=== PATIENT | female | born 1970 | race Caucasian/White ===

== ENCOUNTER 2022-01-13 05:15 | Observation (INO) | payer OTHER, SELFPAY ==
[2022-01-13] VITALS (15 sets, daily range): BP systolic 150–220; BP diastolic 87–119; PULSE 57–81; RESP 15–18; TEMP 35.7–36.8; O2SAT 91–99; BMI 36.6
--- NOTE | 2022-01-13 | GALL_PTH ---
PATIENT: ALINA GUILLERMO LOC: MS3 U#:[id number] AGE/SX: 51/F ROOM: IL318 RE01/13/[address]: Dr. Chepe Burgos MD : 1970 BED: 1 DIS: 01/14/2022 SPEC #: [id number] RECD: 01/13/22 15:21 STATUS: VELIA PAGE #: [id number] NICANOR: 01/13/22 00:[address]: Chepe Burgos DEPT: SURGICAL PATHOLOGY RECD BY: Luis Fernando Everett ENTERED: 01/14/22 07:19 SP TYPE: LINDA KRAMER DR: Dr. Greg Morrell MD Tissues: Gallbladder, NOS Procedures: Surgery Specimen Level III HEADER OPERATION: Laparoscopic cholecystectomy with IOC PRE-OP DIAGNOSIS: Cholecystitis with cholelithiasis TISSUE SUBMITTED: Gallbladder MICROSCOPIC DIAGNOSIS Gallbladder, cholecystectomy: Chronic cholecystitis and cholelithiasis. SJ:alycia 01/17/2022 MICROSCOPIC DESCRIPTION Slides are reviewed. GROSS DESCRIPTION Received is one container labeled with the patient's name and designated gallbladder. The specimen consists of a gallbladder measuring 10.5 cm in length and up to 4 cm in diameter. The external surface is pink-esquivel, smooth and glistening for the most part. Focally it is granular, hemorrhagic and contains cautery artifact. The gallbladder contains green-yellow mucoid bile and multiple black irregular stones measuring in aggregate 3 x 3 x 0.5 cm and 0.1 to 0.4 cm in greatest dimension. The mucosa is bile-stained and without any mass lesions. The gallbladder wall measures 0.2 cm in thickness. Service Engineer sections from the gallbladder and the cystic duct are submitted in one cassette. / SJ:rg 01/14/2022 TC:3 [facility]: [id number]
--- NOTE | 2022-01-13 05:27 | EDS_ITS ---
HPI History of Present Illness Chief Complaint: Back Informant: patient Narrative Narrative: 51-year-old female resents to the emergency department with abdominal pain and back pain. States that she ate dinner around 1730 hrs. and started to get a backache at around 2200 hrs. She states that around midnight she started getting upper abdominal pain and nausea. She has not been able to go back to sleep. She notes it is uncomfortable to walk to touch the area. She denies any urinary symptoms. No bowel changes. No fever but does note she was feeling chilled and sweats at times. She has had prior section. [facility] Medical History (Updated 01/13/22 @ 06:[address] Azeem Lindsay DO) Asthma Home Medications montelukast 10 mg tablet 10 mg PO DAILY 01/13/22 [History Last Taken Unknown] Allergy/AdvReac Type Severity Reaction Status Date / Time Penicillins Allergy Shortness Verified 01/13/22 05:20 of breath Surgical History (Updated 01/13/22 @ 05:[address] Azeem Lindsay DO) History of delivery Social History (Updated 01/13/22 @ 05:[address] Azeem Lindsay DO) Smoking Status: Never smoker substance use type: does not use EXAM Physical Exam Const Vital Signs: 01/13/22 05:17 01/13/22 06:04 Temperature 96.2 F L Temperature Source Temporal Pulse Rate 74 67 Respiratory Rate 15 15 Blood Pressure 220/119 H 183/93 H Blood Pressure Mean 152 123 Pulse Ox 98 95 Oxygen Delivery Method Room Air Room Air Positive well nourished and well developed General Appearance ED: well developed HEENT Reports normocephalic, head/scalp atraumatic and moist mucous membranes Eyes PERRL and EOMs intact bilaterally Neck no lymphadenopathy, supple and no JVD Resp normal respiratory effort and clear to auscultation bilaterally Cardio regular rate, regular rhythm and no murmurs GI Auscultation: hypoactive bowel sounds Palpation: soft and tender RUQ; Negative for guarding or rebound tenderness present Back/Spine no CVA tenderness and normal ROM Extremity normal to inspection General Extremety ED: Negative for edema General Extremity: Negative for edema Neuro oriented x3 and CN's II-XII intact bilaterally Sensorium / Orientation: alert Motor Exam: strength 5/5 throughout Psych mental status grossly normal Mood & Affect: Negative for depressed or tearful Skin no rashes or lesions noted and no wounds MDM MDM MDM Narrative Medical decision making narrative: Patient was kept n.p.o. received morphine and Zofran. White count returns elevated at 14.7. Glucose of 131 direct bilirubin of 0.62 AST of 92 and ALT of 67. Lipase of 104. Patient's pain was improved. Nausea is also improved. Gallbladder ultrasound was ordered. It this time the care of the patient will be turned over to the oncoming physician for check of gallbladder report and final disposition. Lab Data Attestation: I reviewed the patient's lab results. Labs: Laboratory Results - last 24 hr 01/13/22 01/13/22 05:30 05:30 WBC 14.7 H RBC 5.11 Hgb 14.4 Hct 42.8 MCV 83.8 MCH 28.2 MCHC 33.6 RDW Std Deviation 39.3 RDW Coeff of Sarina 12.8 Plt Count 346 MPV 9.1 Immature Gran % (Auto) 0.500 Neut % (Auto) 80.3 H Lymph % (Auto) 13.1 L [place] % (Auto) 5.3 Eos % (Auto) 0.3 Baso % (Auto) 0.5 Absolute Neuts (auto) 11.8 H Absolute Lymphs (auto) 1.92 Nucleated RBC % 0 Sodium 138 Potassium 3.4 L Chloride 104 Carbon Dioxide 26.0 Anion Gap 8 BUN 14 Creatinine 0.92 Estim Creat Clear Calc 79.11 Est GFR (MDRD) Af Amer 82 Est GFR (MDRD) Non-Af 68 BUN/Creatinine Ratio 15.2 Glucose 131 H Calcium 8.9 Total Bilirubin 0.90 Direct Bilirubin 0.62 H AST 92 H ALT 67 H Alkaline Phosphatase 47 Total Protein 7.7 Albumin 3.3 Globulin 4.4 H Lipase 104 Discharge Plan Triage Chief Complaint: Back ED Provider: Azeem Lindsay Dx/Rx/DC Orders Clinical Impression: Abdominal pain, Nausea Prescriptions: No Action montelukast 10 mg tablet 10 mg PO DAILY Primary Care Provider: Greg Morrell Referrals: Greg Morrell MD [Primary Care Provider] -
[2022-01-13] MEDS: Ondansetron 4 MG/2 ML Vial IV ×2 (05:33→16:27)
[2022-01-13 05:36] LABS: Absolute Lymphocyte Count 1.92 X10^3/uL (0.83-4.51); Absolute Neutrophil Count 11.8 X10^3/uL (2.0-7.7); Basophil# 0.08 X10^3/uL; Basophil% 0.5 % (0-1); Eosinophil# 0.04 X10^3/uL; Eosinophils% 0.3 % (0-5); Hematocrit 42.8 % (37-47); Hemoglobin 14.4 g/dL (12.0-15.0); Lymphocyte # 1.92 X10^3/ul (0.83-4.51); Lymphocyte % 13.1 % (19-41); Mean Corp Hgb Conc 33.6 g/dL (32-36); Mean Corpuscular Hgb 28.2 pg (27.0-32.0); Mean Corpuscular Volume 83.8 fL (81-99); Mean Platelet Vol. 9.1 fl (6.2-12.0); Monocyte# 0.78 X10^3/uL; Monocyte% 5.3 % (0-10); NRBC Flagged by Analyzer 0 % (0-5); Neutrophil % 80.3 % (47-70); Platelet Count 346 K/mm3 (150-450); RBC Distribution Width CV 12.8 % (11.6-14.6); RBC Distribution Width SD 39.3 fl (35.1-43.9); Red Blood Count 5.11 M/mm3 (4.2-5.4); White Blood Count 14.7 K/mm3 (4.4-11.0)
[2022-01-13] MEDS: Morphine 4 MG/ML Syringe IV (05:36)
[2022-01-13 05:56] LABS: AST(SGOT) 92 U/L (15-37); Alanine Aminotransfer ALT/SGPT 67 U/L (13-56); Albumin, Serum 3.3 g/dL (3.2-5.0); Alkaline Phosphatase 47 U/L (45-117); Anion Gap 8 (5-15); BUN 14 mg/dL (7-18); BUN/Creat Ratio 15.2 RATIO (10-20); Bilirubin, Direct 0.62 mg/dL (0.00-0.30); Calcium,Total 8.9 mg/dL (8.5-10.1); Chloride 104 mmol/L (98-107); Creatinine, Serum 0.92 mg/dL (0.55-1.02); EST Glomerular Filtration Rate 68 mL/min (>60); Est Glom Filt Rate - Afr Amer 82 mL/min (>60); Estimated Creatinine Clearance 79.11 ml/min; Globulin 4.4 g/dL (2.2-4.2); Glucose 131 mg/dL (74-106); Lipase 104 U/L (73-393); Potassium 3.4 mmol/L (3.5-5.1); Protein, Total 7.7 g/dL (6.4-8.2); Sodium Level 138 mmol/L (136-145)
--- NOTE | 2022-01-13 05:58 | US_ITS ---
EXAM: US ABDOMEN LIMITED, RIGHT UPPER QUADRANT CLINICAL INDICATION: Pain TECHNIQUE: Real-time ultrasound of the right upper quadrant with image documentation. This report was created using [employer] report generation technology. COMPARISON: None. FINDINGS: LIVER: Unremarkable. There is normal echotexture. No focal hepatic lesion. No intrahepatic biliary ductal dilation. GALLBLADDER: Small sand-like stones in the dependent portion of the gallbladder. Gallbladder is distended measuring 5 cm in diameter and 14 cm in length. No gallbladder wall thickening is demonstrated. No pericholecystic fluid. Negative sonographic Argueta''s sign. COMMON BILE DUCT: Common bile duct is borderline dilated measuring 6.6 mm. PANCREAS: Unremarkable as visualized. No focal abnormality is demonstrated in the pancreas. No pancreatic ductal dilatation. RIGHT KIDNEY: Small cyst right kidney. No follow-up imaging required. There is no hydronephrosis. No shadowing calculus. US/Gallbladder IMPRESSION: Very distended gallbladder with small sand-like stones. Negative sonographic Argueta''s sign. No wall thickening. Electronically Signed: Chepe García MD at 7:47 EDT ,
--- NOTE | 2022-01-13 09:09 | HP.PCM_ITS ---
HPI - General General Date of Admission: 01/13/22 Date of Service: 01/13/22 Chief Complaint: Back pain becoming right upper quadrant pain and nausea HPI Narrative ALINA GUILLERMO, is a 51 F who presents to [facility] ER with com plaints of acute onset back pain progressing to right upper quadrant pain and nausea. Patient states the onset of the symptoms was 10 PM last evening and she has never had symptoms like these prior. She states she had baked chicken and fettuccine Luther with a cream sauce for dinner. She admits that this latter meal is not something that she has often. He denies any sick contacts. She denies any yellowing of her skin or eyes. She denies any itchy rashes. She confirms that her weight has been stable and she has enjoyed a period of good health otherwise. She works as a teacher here locally. Her ER work-up is notable for right upper quadrant ultrasound that demonstrates a distended gallbladder and borderline common bile duct. Patient CBC is remarkable for leukocytosis and CMP demonstrates mild elevations of her liver function tests. She confirms a past medical history of asthma and past surgical history of C- section. [facility] Medical History (Updated 01/13/22 @ 09:[address] Chepe Burogs MD) Asthma Home Medications montelukast 10 mg tablet 10 mg PO DAILY 01/13/22 [History Last Taken Unknown] Allergy/AdvReac Type Severity Reaction Status Date / Time Penicillins Allergy Shortness Verified 01/13/22 05:20 of breath Surgical History (Updated 01/13/22 @ 05:[address] Azeem Lindsay DO) History of delivery Social History (Updated 01/13/22 @ 05:[address] Azeem Lindsay DO) Smoking Status: Never smoker substance use type: does not use ROS Constitutional Constitutional: Denies change in weight Gastrointestinal Gastrointestinal: Reports abdominal pain and nausea; Denies constipation, diarrhea, dyspepsia or vomiting Musculoskeletal Musculoskeletal: Reports back pain Integumentary Integumentary: Denies jaundice, pruritus or rash Vital Signs Vital Signs Vital Signs: 01/13/22 05:17 01/13/22 06:04 01/13/22 08:10 Temperature 96.2 F L Temperature Source Temporal Pulse Rate 74 67 60 Respiratory Rate 15 15 16 Blood Pressure 220/119 H 183/93 H 172/100 H Blood Pressure Mean 152 123 124 Pulse Ox 98 95 98 Oxygen Delivery Method Room Air Room Air Room Air Weight Weight: 255 lb 1.197 oz Body Mass Index (BMI) 36.6 Physical Exam Const alert and oriented x3 Constitutional Narrative: Pleasant but appears with mild discomfort Resp normal respiratory effort Cardio regular rate GI GI Narrative: Obese, no scars, nondistended, soft, tender to palpation in right upper quadrant. This is worse with deep inspiration but technically negative Argueta sign. Results Lab / Micro Data Result Diagrams: 01/13/22 05:30 01/13/22 05:30 Labs: Laboratory Results - last 24 hr 01/13/22 05:30: WBC 14.7 H, RBC 5.11, Hgb 14.4, Hct 42.8, MCV 83.8, MCH 28.2, MCHC 33.6, RDW Std Deviation 39.3, RDW Coeff of Sarina 12.8, Plt Count 346, MPV 9.1, Immature Gran % (Auto) 0.500, Neut % (Auto) 80.3 H, Lymph % (Auto) 13.1 L, [place] % (Auto) 5.3, Eos % (Auto) 0.3, Baso % (Auto) 0.5, Absolute Neuts (auto) 11.8 H, Absolute Lymphs (auto) 1.92, Nucleated RBC % 0 01/13/22 05:30: Sodium 138, Potassium 3.4 L, Chloride 104, Carbon Dioxide 26.0, Anion Gap 8, BUN 14, Creatinine 0.92, Estim Creat Clear Calc 79.11, Est GFR (MDRD) Af Amer 82, Est GFR (MDRD) Non-Af 68, BUN/Creatinine Ratio 15.2, Glucose 131 H, Calcium 8.9, Total Bilirubin 0.90, Direct Bilirubin 0.62 H, AST 92 H, ALT 67 H, Alkaline Phosphatase 47, Total Protein 7.7, Albumin 3.3, Globulin 4.4 H, Lipase 104 Radiology Impression Gallbladder Ultrasound 01/13/22 05:58 IMPRESSION: Very distended gallbladder with small sand-like stones. Negative sonographic Argueta''s sign. No wall thickening. Electronically Signed: Chepe García MD at 7:47 EDT , Assessment & Plan Assessment/Plan (1) Cholecystitis with cholelithiasis: PLAN: Is a 51-year-old female who presents with acute onset right upper quadrant pain and nausea (following initial experience of back pain). Patient has associated leukocytosis and distended gallbladder with ER work-up. She remains tender in the right upper quadrant on exam despite IV pain medication. She is also noted to be moderately hypertensive and denies any history of this diagnosis. Taken together, I believe she has an acutely inflamed gallbladder and would benefit from a cholecystectomy. She also has mildly elevated liver function studies. I have therefore recommended laparoscopic cholecystectomy with intraoperative cholangiogram and she is excepting of this recommendation. We will plan to proceed for this operation later today. Emergency medicine to begin IV antibiotic therapy. Patient to be admitted to the floor under observation status for the interim. Her ultimate disposition will be somewhat dependent on operative findings and her postoperative pain control. Neuro: As needed Dilaudid Pulm/CV: Incentive spirometer, monitor blood pressure, as needed antihypertensives FEN/GI: We will place order for IV potassium replacement, strict n.p.o. : No current issues Heme/ID: Patient with elevated WBC on labs, a.m. to initiate IV antibiotics Endo: No current issues Proph: SCDs, hold DVT chemoprophylaxis Dispo: Admit to observation status Charges/Coding Visit Charges OBSV E&M: 80926 Initial observation care L2
[2022-01-13] MEDS: Ciprofloxacin 400 MG/200 ML BAG 200 MG IV (09:32)
[2022-01-13] MEDS: Clindamycin 900 MG/50 ML BAG 75 MG IV (12:12)
--- NOTE | 2022-01-13 12:30 | RAD_ITS ---
STUDY: INTRAOPERATIVE CHOLANGIOGRAM. REASON FOR EXAM: Female, 51 years old. Lap maty FLUOROSCOPY TIME (if supplied): ( 10.9 seconds ) minutes/seconds. A cine run of 61 images was submitted. TECHNIQUE: Intraoperative cholangiogram was performed by the surgeon. Imaging was submitted. COMPARISON: None. FINDINGS: The intra and extrahepatic biliary ducts are unremarkable. No intraluminal filling defect is seen. There is free flow of contrast into the duodenum. RAD/Cholangiogram/ O R,Initial IMPRESSION: Unremarkable intraoperative cholangiogram. Electronically Signed: Demario Cooper MD at 14:55 EDT ,
[2022-01-13] MEDS: Bupivacaine 0.25% 30 ML Vial (13:15)
--- NOTE | 2022-01-13 13:22 | OP.PCM_ITS ---
Report of Operation Date of Procedure: 01/13/22 Pre-Operative Diagnosis: Cholecystitis with cholelithiasis and elevated liver f unction testing Post-Operative Diagnosis: Acute cholecystitis with cholelithiasis Surgery/Procedure Performed:: Laparoscopic cholecystectomy with intraoperative cholangiogram Description of Surgical Findings:: ? Normal gallbladder anatomy with a single cystic duct and cystic artery, however, there are signs of acute cholecystitis with adhesions to surrounding anatomy ? Cholangiogram showing antegrade filling of the common bile duct into the duodenum without obstruction and retrograde filling of the common hepatic and right and left proper hepatic ducts Surgeon: Chepe Burgos bale stacker: Tasneem Canchola Type of Anesthesia: General/Supplemental Anesthesiologist: Gene Felix Specimen's removed: Gallbladder Drains: None Estimated Blood Loss (mL): 75 Description of Procedure: After proper identification in the preoperative holding area, the patient was brought to the operating room where positioned supine on the operating room table. Preoperatively, SCDs and antibiotics were administered. General anesthesia was then induced. Patient's abdomen was prepped and draped in usual sterile fashion. A formal timeout was conducted to confirm both patient and the procedure. Procedure was begun with a supraumbilical incision which was extended deeply down to the level of the fascia. The fascia was elevated and incised, as well as the peritoneum. A finger sweep was performed to ensure there were no underlying adhesions and a 12 mm balloon trocar was inserted. Pneumoperitoneum was established at 15 mmHg. 3 additional trocars were placed in the epigastrium and in the right upper quadrant (3 x 5 mm). Inspection of the peritoneum revealed no inadvertent injury to the viscera below. The gallbladder was visualized with minimal inflammation at the level of the fundus. The gallbladder fundus was then grasped and elevated cephalad. With this mobilization, it was evident there was more localized inflammation along the gallbladder infundibulum between it and the underlying omentum and duodenum. Carefully these adhesions were either bluntly swept away were taken with es ctrocautery. Then, using careful dissection the peritoneum was opened and the structures of the hepatocystic triangle were delineated. Once the critical view of safety was obtained, the cystic duct was singly clipped distally and partially transected with a ductotomy. Then using an Bunn Jimmy clamp, a cholangiocatheter was fed into the proximal segment of the cystic duct and clamped into place. Under fluoroscopy a cholangiogram was then obtained showing a standard length cystic duct flowing into a common bile duct with unobstructed antegrade flow of contrast into the duodenum. There was also retrograde flow through the common hepatic duct into the right and left hepatic ducts. Satisfied with this finding, the Bunn Jimmy clamp was removed and the proximal cystic duct was triply clipped and sharply divided. The same process was used for the cystic artery. The gallbladder was then removed from the gallbladder fossa with the use of electrocautery. Selective electrocautery was used to obtain hemostasis in the gallbladder fossa. There was a pulsatile bleeding vessel in the midportion of the hepatic fossa that required additional cautery therapy. Once hemostasis was achieved with this therapy, I elected to also reinforce this with placement of some Surgicel snow. With the gallbladder nearly removed from the gallbladder fossa, an inadvertent rent was made in the sidewall of the gallbladder near the gallbladder fundus resulting in spillage of bile. This was quickly suctioned free of the peritoneum with our laparoscopic suction acid bath mixer and the suction acid bath mixer was placed into the gallbladder to fully decompress it of its remaining contents. Hemostasis was reverified in the gallbladder fossa then the gallbladder was fully removed from the liver and the gallbladder was placed in an Endo Catch bag and removed from the peritoneum. Morison's pouch was irrigated and the effluent was suctioned free of the peritoneum. Hemostasis was again confirmed. Pneumoperitoneum was evacuated and the fascia of the 12 mm port sites was closed with #1Vicryl in a [id number] fashion. A total of 30 mL of anesthetic was injected at the port sites for postoperative pain control. The skin of each port site was then closed in subcuticular fashion using 4-0 Monocryl. Steri-Strips and bandages were applied as dressings. Patient tolerated the procedure well without any apparent complications. On emergence from their anesthetic the patient was taken to PACU for ongoing recovery. Complications None Admit VTE Documentation VTE Mechan Device Prophylaxis: SCD's Procedures Digestive 40xxx-49xxx: [id number] Laparo cholecystectomy/graph
[2022-01-13] MEDS: HYDROmorphone 0.5 MG/0.5 ML SYRINGE IV (15:41)
[2022-01-13] MEDS: 0.9% Saline Lock 10 ML Syringe IV (15:41)
[2022-01-13] MEDS: Ibuprofen 400 MG Tablet PO (17:31)
[2022-01-13] MEDS: 0.9% Normal Saline 1,000 ML 125 ML IV ×2 (17:31→21:40)
[2022-01-13] MEDS: Acetaminophen 500 MG Tablet PO (21:40)
[2022-01-13] MEDS: oxyCODONE 5 MG Tablet PO (21:40)
[2022-01-14] MEDS: Ibuprofen 400 MG Tablet PO ×3 (00:08→10:39)
[2022-01-14 04:00] VITALS: BP 171/92; PULSE 65; RESP 18; TEMP 36.8; O2SAT 97
[2022-01-14 04:46] VITALS: BP 171/92; PULSE 65
[2022-01-14] MEDS: hydrALAZINE 20 MG/ML Vial 10 MG IV (04:46)
[2022-01-14] MEDS: 0.9% Normal Saline 1,000 ML 125 ML IV (04:46)
[2022-01-14 05:42] VITALS: BP 163/91
[2022-01-14 06:02] LABS: Absolute Lymphocyte Count 2.02 X10^3/uL (0.83-4.51); Absolute Neutrophil Count 11.9 X10^3/uL (2.0-7.7); Basophil# 0.03 X10^3/uL; Basophil% 0.2 % (0-1); Eosinophil# 0.01 X10^3/uL; Eosinophils% 0.1 % (0-5); Hematocrit 42.1 % (37-47); Hemoglobin 13.9 g/dL (12.0-15.0); Lymphocyte # 2.02 X10^3/ul (0.83-4.51); Lymphocyte % 13.4 % (19-41); Mean Corpuscular Hgb 28.9 pg (27.0-32.0); Mean Corpuscular Volume 87.5 fL (81-99); Mean Platelet Vol. 9.2 fl (6.2-12.0); Monocyte# 1.03 X10^3/uL; Monocyte% 6.8 % (0-10); NRBC Flagged by Analyzer 0 % (0-5); Neutrophil # 11.94 X10^3/uL (2.7-7.7); Platelet Count 349 K/mm3 (150-450); RBC Distribution Width SD 41.8 fl (35.1-43.9); Red Blood Count 4.81 M/mm3 (4.2-5.4); White Blood Count 15.1 K/mm3 (4.4-11.0)
[2022-01-14 06:31] LABS: ALB/GLOB Ratio 0.7 RATIO (0.9-2.4); AST(SGOT) 110 U/L (15-37); Alanine Aminotransfer ALT/SGPT 142 U/L (13-56); Albumin, Serum 2.9 g/dL (3.2-5.0); Alkaline Phosphatase 51 U/L (45-117); Anion Gap 8 (5-15); BUN 8 mg/dL (7-18); BUN/Creat Ratio 10.9 RATIO (10-20); Calcium,Total 8.4 mg/dL (8.5-10.1); Chloride 107 mmol/L (98-107); Creatinine, Serum 0.74 mg/dL (0.55-1.02); EST Glomerular Filtration Rate 89 mL/min (>60); Est Glom Filt Rate - Afr Amer 107 mL/min (>60); Estimated Creatinine Clearance 98.35 ml/min; Globulin 3.9 g/dL (2.2-4.2); Glucose 124 mg/dL (74-106); Potassium 3.8 mmol/L (3.5-5.1); Protein, Total 6.8 g/dL (6.4-8.2); Sodium Level 139 mmol/L (136-145)
--- NOTE | 2022-01-14 08:35 | DCINST_ITS ---
Discharge Instructions Diet Discharge Diet: No restrictions Activity Discharge Activity: May Not Drive (May not drive while taking narcotic pain medications) and May Shower (May begin showering 48hours postop. Please avoid baths or submerging surgical incisions before skin is completely healed.) May shower in (days): 2 May resume sexual activity in: 2 weeks Ice area for (Minutes): 20 Lifting Restrictions: Limit lifting to <15lbs for 2 weeks following surgery Dressing / Incision Call your doctor if your incision/area has: Sudden Increased Bleeding, Increased Pain/ Swelling, Increased Redness, Foul Smelling Discharge and Swelling at the incision site Call your doctor if you observe: Fever of 101 or Higher, Inability to urinate, Inability to have a bowel movement and Uncontrolled pain Suture Line Care: Avoid Pulling/Pushing Remove Dressing in: 2 days (Please leave steri strips (medical tape) in place until they fall off spontaneously or are removed at your follow-up appointment) Cleanse incision/area with: Keep Dressing Clean & Dry Additional Dressing/Incision Instructions:: Please leave Steri-Strips intact until they fall off spontaneously or are taken off at your follow-up visit Follow Up Care Please Follow Up With: Chepe Burgos MD When: 7 to 10 days postop Test Results: Test results from this visit will be discussed in further detail at your follow- up appointment, if applicable. Discharge Plan Admission Admit Date/Time: 01/13/22 12:27 Primary Reason for Your Visit: Cholecystectomy Attending Provider: Chepe Burgos Primary Care Provider: Greg Morrell Instructions Patient Instructions: After Gallbladder Surgery Discharge Orders/Prescriptions Prescriptions: New oxycodone 5 mg Tablet 5 mg PO Q6H PRN PRN (Reason: Pain Score 6-10) 3 Days Qty: 10 0RF Continued montelukast 10 mg tablet 10 mg PO DAILY fluticasone propion-salmeterol [Advair Diskus] 250-50 mcg/dose blister with device INHALATION norethindrone ac-eth estradiol 1-20 mg-mcg tablet levocetirizine 5 mg tablet Referrals / Follow Up: Greg Morrell MD [Primary Care Provider] - Disposition Disposition (needs filled in before D/C Order can be placed): Home, Self Care
--- NOTE | 2022-01-14 08:43 | DS.PCM_ITS ---
Providers Date of Admission: 01/13/22 Primary Care Physician: Dr. Greg Morrell MD Reason For Visit: CHOLECYSTITIS Diagnosis Discharge Diagnosis (1) Cholecystitis with cholelithiasis: Status: Acute Code(s): K80.10 - Calculus of gallbladder with chronic cholecystitis without obstruction Plan: Is a 51-year-old female who presents with acute onset right upper quadrant pain and nausea (following initial experience of back pain). Patient has associated leukocytosis and distended gallbladder with ER work-up. She remains tender in the right upper quadrant on exam despite IV pain medication. She is also noted to be moderately hypertensive and denies any history of this diagnosis. Taken together, I believe she has an acutely inflamed gallbladder and would benefit from a cholecystectomy. She also has mildly elevated liver function studies. I have therefore recommended laparoscopic cholecystectomy with intraoperative cholangiogram and she is excepting of this recommendation. We will plan to proceed for this operation later today. Emergency medicine to begin IV antibiotic therapy. Patient to be admitted to the floor under observation status for the interim. Her ultimate disposition will be somewhat dependent on operative findings and her postoperative pain control. Neuro: As needed Dilaudid Pulm/CV: Incentive spirometer, monitor blood pressure, as needed antihypertensives FEN/GI: We will place order for IV potassium replacement, strict n.p.o. : No current issues Heme/ID: Patient with elevated WBC on labs, a.m. to initiate IV antibiotics Endo: No current issues Proph: SCDs, hold DVT chemoprophylaxis Dispo: Admit to observation status Medications at Discharge Home Medications fluticasone 250 mcg-salmeterol 50 mcg/dose blistr powdr for inhalation (Advair Diskus) inhalation 01/13/22 levocetirizine 5 mg tablet mg 01/13/22 montelukast 10 mg tablet 10 mg PO DAILY 01/13/22 norethindrone acetate 1 mg-ethinyl estradiol 20 mcg tablet tab 01/13/22 oxycodone 5 mg tablet 5 mg PO Q6H PRN PRN Pain Score 6-10 3 days #10 tabs 01/14/22 Hospital Course Operations None and cholecystecomy Procedures None Summary of Care Provided Hospital Course: Patient is a 51-year-old female who was met in the ER on 01/13/2022. She had presented with signs and symptoms of cholecystitis?a diagnosis that was further confirmed with her emergency work-up showing leukocytosis and characteristic ultrasound findings. Thus, laparoscopic cholecystectomy with intraoperative cholangiogram was recommended and the patient assented to this recommendation. This procedure was undertaken the same day in an uncomplicated fashion. Postoperatively, patient was admitted for overnight monitoring and laboratories were drawn the morning of postoperative day 1. Postoperative day 1 patient demonstrated significant improvement in her symptoms and her labs were stable. She was well controlled for postoperative discomfort and the diet was advanced uneventfully. Therefore, after reviewing postoperative instructions and expectations, she was granted discharge to home with follow-up requested in our outpatient clinic in 7 to 10 days. Physical Exam Const alert and oriented x3 General Appearance: cooperative GI GI Narrative: Minimally distended, operative site dressings were intact with minimal strikethrough. Appropriately/minimally tender to palpation Weight / BMI Weight Weight: 255 lb 1.197 oz Body Mass Index (BMI) 36.6 ABG / Lab / Microbiology Data Result Diagrams: 01/14/22 05:40 01/14/22 05:40 Laboratory: Laboratory Results - last 24 hr 01/14/22 05:40: WBC 15.1 H, RBC 4.81, Hgb 13.9, Hct 42.1, MCV 87.5, MCH 28.9, MCHC 33.0, RDW Std Deviation 41.8, RDW Coeff of Sarina 13.0, Plt Count 349, MPV 9.2, Immature Gran % (Auto) 0.500, Neut % (Auto) 79.0 H, Lymph % (Auto) 13.4 L, [place] % (Auto) 6.8, Eos % (Auto) 0.1, Baso % (Auto) 0.2, Absolute Neuts (auto) 11.9 H, Absolute Lymphs (auto) 2.02, Nucleated RBC % 0 01/14/22 05:40: Sodium 139, Potassium 3.8, Chloride 107, Carbon Dioxide 24.0, Anion Gap 8, BUN 8, Creatinine 0.74, Estim Creat Clear Calc 98.35, Est GFR (MDRD) Af Amer 107, Est GFR (MDRD) Non-Af 89, BUN/Creatinine Ratio 10.9, Glucose 124 H, Calcium 8.4 L, Total Bilirubin 0.50, AST 110 H, ALT 142 H, Alkaline Phosphatase 51, Total Protein 6.8, Albumin 2.9 L, Globulin 3.9, Albumin/Globulin Ratio 0.7 L Radiography Diagnostic Testing: Radiology Impression Cholangiogram 01/13/22 12:30 IMPRESSION: Unremarkable intraoperative cholangiogram. Electronically Signed: Demario Cooper MD at 14:55 EDT , D/C Instructions Discharge Diet: No restrictions May shower in (days): 2 May resume sexual activity in: 2 weeks Ice area for (Minutes): 20 Call your doctor if your incision/area has: Sudden Increased Bleeding, Increased Pain/ Swelling, Increased Redness, Foul Smelling Discharge and Swelling at the incision site Call your doctor if you observe: Fever of 101 or Higher, Inability to urinate, Inability to have a bowel movement and Uncontrolled pain Suture Line Care: Avoid Pulling/Pushing Cleanse incision/area with: Keep Dressing Clean & Dry Additional Dressing/Incision Instructions: Please leave Steri-Strips intact until they fall off spontaneously or are taken off at your follow-up visit Please Follow Up With: Chepe Burgos MD When: 7 to 10 days postop Meaningful Use Info Meaningful Use Diagnoses (Choose all that apply): None applicable Discharge Plan Admission Admit Date/Time: 01/13/22 12:27 Primary Reason for Your Visit: Cholecystectomy Attending Provider: Chepe Burgos Primary Care Provider: Greg Morrell Instructions Patient Instructions: After Gallbladder Surgery Discharge Orders/Prescriptions Prescriptions: New oxycodone 5 mg Tablet 5 mg PO Q6H PRN PRN (Reason: Pain Score 6-10) 3 Days Qty: 10 0RF Continued montelukast 10 mg tablet 10 mg PO DAILY fluticasone propion-salmeterol [Advair Diskus] 250-50 mcg/dose blister with device INHALATION norethindrone ac-eth estradiol 1-20 mg-mcg tablet levocetirizine 5 mg tablet Referrals / Follow Up: Greg Morrell MD [Primary Care Provider] - Disposition Disposition (needs filled in before D/C Order can be placed): Home, Self Care Charges/Coding Visit Charges Inpatient E&M: 06333 Disch Hosp
--- NOTE | 2022-01-14 09:00 | CASEMGMT ---
DEBO MATHEW Assessment: Face to Face with pt for initial transition planning/care coordination assessment. RN PRIYANKA introduced self and role at [facility], pt voices understanding and consents to assessment. Pt is A/O x4 and answers all questions appropriately at this time. Pt sitting up in bed with at bedside. Care providers, pharmacy, and demographics verified/updated. Admitting Dx: cholecystitis PCP:Petros Specialists:[facility]; Amandeep, STRUCTURAL ANALYSIS ENGINEER Preferred Pharmacy: [facility] Retail Insurance: MMO Prescription Benefit: yes LW/HPOA: Pt denies having a LW/DPOA and denies need for info regarding AD. LNOK: Joe Bahena, Living Arrangements: Pt lives with and 3 children in a two story house with 3 steps to enter. Pt reports she is I in ADL's and denies concerns at home. Transportation: Pt drives self and denies concerns with transportation. DME/HHC/SNF: Pt denies having any DME, hx of HHC or SNF stays. Pt states no concerns with going home at time of dc. Pt states no further concerns/needs. CM to follow. Advised pt to ask CM if any further question/concerns/needs arise, voices understanding. Pt Goal: Home Plan: Home
[2022-01-14 10:00] VITALS: BP 155/87; PULSE 56; RESP 16; TEMP 36.7; O2SAT 98
[2022-01-14] MEDS: Montelukast 10 MG Tablet PO (10:39)
== END 2022-01-14 12:30 | disposition home or self-care (01) | DRG 419 ==
LOC: ED 09:09 → MS3 09:14
PROVIDERS: Admitting Provider Surgery; Emergency Provider Emergency Medicine; PCP Family Medicine; Visit Provider Surgery
PROC: (CPT 47610; principal; 2022-01-13 11:25)
DX: K80.12 Calculus of gallbladder with acute and chronic cholecystitis without obstruction (principal); J45.909 Unspecified asthma, uncomplicated; R03.0 Elevated blood-pressure reading, without diagnosis of hypertension
CPT/HCPCS: 47563; 00790; 36415; 74300; 76000; 76705; 80048; 80053; 80076; 83690; 85025; 88304; 96361; 96374; 96375; 96376; 99218; 99251; 99284; J7030; A4216; G0378; G0463; J0744; J2405

== ENCOUNTER → 2022-01-24 | Outpatient (CLI) | payer OTHER, SELFPAY ==
[2022-01-24 17:13] LABS: ALB/GLOB Ratio 0.7 RATIO (0.9-2.4); AST(SGOT) 12 U/L (15-37); Alanine Aminotransfer ALT/SGPT 24 U/L (13-56); Albumin, Serum 3.3 g/dL (3.2-5.0); Alkaline Phosphatase 48 U/L (45-117); Anion Gap 7 (5-15); BUN 15 mg/dL (7-18); BUN/Creat Ratio 19.4 RATIO (10-20); Calcium,Total 9.4 mg/dL (8.5-10.1); Chloride 105 mmol/L (98-107); Creatinine, Serum 0.77 mg/dL (0.55-1.02); EST Glomerular Filtration Rate 84 mL/min (>60); Est Glom Filt Rate - Afr Amer 101 mL/min (>60); Globulin 4.6 g/dL (2.2-4.2); Glucose 89 mg/dL (74-106); Potassium 3.6 mmol/L (3.5-5.1); Protein, Total 7.9 g/dL (6.4-8.2); Sodium Level 139 mmol/L (136-145)
== END | disposition home or self-care (01) ==
LOC: LAB 15:35
PROVIDERS: PCP Family Medicine; Visit Provider Surgery
DX: Z90.49 Acquired absence of other specified parts of digestive tract (principal)
CPT/HCPCS: 36415; 80053

== ENCOUNTER 2022-06-06 08:32 | Inpatient (IN) | payer OTHER, SELFPAY ==
[2022-06-06] VITALS (12 sets, daily range): BP systolic 139–247; BP diastolic 79–127; PULSE 64–89; RESP 16–20; TEMP 35.9–37.1; O2SAT 95–98; BMI 34.4; BMI 35.7
--- NOTE | 2022-06-06 08:50 | EX.ED.DYSGE1 ---
HPI History of Present Illness Chief Complaint: Hypertension Informant: patient Narrative Narrative: Patient presents secondary to hypertension and not feeling well for the past couple days. She states she had some pain in her back between her shoulder blades as well as some indigestion. 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 Patient denies history of hypertension. It is noted that the patient was here for a cholecystectomy last fall and had elevated blood pressures at that time. She states she followed with her primary care physician and it was closely monitored and returned to normal. [facility] Medical History (Updated 06/06/22 @ 10:[address] Gillian Us MD) Asthma Home Medications fluticasone 250 mcg-salmeterol 50 mcg/dose blistr powdr for inhalation (Advair Diskus) 1 inh inhalation BID 01/13/22 [History Last Taken Unknown] levocetirizine 5 mg tablet mg 01/13/22 [History Last Taken Unknown] montelukast 10 mg tablet 10 mg PO DAILY 01/13/22 [History Last Taken Unknown] norethindrone acetate 1 mg-ethinyl estradiol 20 mcg tablet 1 tab PO DAILY 01/13/22 [History Last Taken Unknown] oxycodone 5 mg tablet 5 mg PO Q6H PRN PRN Pain Score 6-10 3 days #10 tabs 01/14/22 [Rx Last Taken Unknown] Allergy/AdvReac Type Severity Reaction Status Date / Time Penicillins Allergy Shortness Verified 06/06/22 08:36 of breath Surgical History (Updated 06/06/22 @ 09:10 by Ava Cooley) History of delivery History of cholecystectomy Social History Smoking Status: Never smoker substance use type: does not use ROS ROS ED Constitutional Constitutional ED: Denies chills or fever(s) Eyes Eyes: Denies change in vision or discharge from eye(s) ENT ENT ED: Denies discharge from eye(s), rhinorrhea or sore throat Cardiovascular Cardiovascular: Denies chest pain or palpitations Respiratory/Chest Respiratory/Chest: Denies cough or dyspnea Gastrointestinal Gastrointestinal: Reports abdominal pain; Denies diarrhea, nausea or vomiting Genitourinary Genitourinary ED: Denies difficulty urinating or dysuria Musculoskeletal Musculoskeletal: Reports back pain; Denies extremity pain Integumentary Denies Abrasions or rash Neurologic Neurologic: Reports other Details: Dizziness ; Denies headache(s) or weakness Psychiatric Psychiatric: Denies anxiety or depression Allergic/Immunologic Allergic/Immunologic ED: Denies lip swelling or urticaria EXAM Physical Exam Const Vital Signs: 06/06/22 08:33 06/06/22 08:59 06/06/22 09:10 Temperature 96.7 F L Temperature Source Temporal Pulse Rate 89 74 Respiratory Rate 18 16 Respiratory Effort Respiratory Pattern Blood Pressure 247/122 H 187/112 H 161/110 H Blood Pressure Mean 163 137 127 Pulse Ox 98 95 Oxygen Delivery Method Room Air Room Air 06/06/22 09:10 06/06/22 09:17 Temperature Temperature Source Pulse Rate Respiratory Rate Respiratory Effort Normal Respiratory Pattern Normal Blood Pressure 180/106 H Blood Pressure Mean 130 Pulse Ox Oxygen Delivery Method Positive well nourished and well developed General Appearance ED: well developed HEENT Reports normocephalic and head/scalp atraumatic Eyes PERRL and EOMs intact bilaterally Neck supple Chest Wall inspection of chest normal and palpation of chest normal Resp normal respiratory effort and clear to auscultation bilaterally Cardio regular rate and regular rhythm GI normal to inspection, nondistended, normoactive bowel sounds Palpation: soft Back/Spine no CVA tenderness Extremity normal to inspection Neuro oriented x3 and no sensory deficits noted Sensorium / Orientation: alert Motor Exam: strength 5/5 throughout Psych mental status grossly normal Skin no rashes or lesions noted MDM MDM MDM Narrative Medical decision making narrative: Patient placed on alarm security or surveillance monitor. EKG obtained to evaluate for cardiac ischemia and lab work obtained to evaluate for anemia, electrolyte disturbance, cardiac ischemia.. Patient ordered 10 mg of IV labetalol. Portable chest obtained to evaluate for cardiac size and any acute lung pathology. Lab Data Attestation: I reviewed the patient's lab results. Labs: Laboratory Results - last 24 hr 06/06/22 06/06/22 06/06/22 08:58 08:58 08:58 WBC 12.8 H RBC 5.30 Hgb 14.6 Hct 45.4 MCV 85.7 MCH 27.5 MCHC 32.2 RDW Std Deviation 40.8 RDW Coeff of Sarina 13.1 Plt Count 382 MPV 9.4 Immature Gran % (Auto) 0.400 Neut % (Auto) 73.7 H Lymph % (Auto) 17.0 L [place] % (Auto) 7.3 Eos % (Auto) 1.0 Baso % (Auto) 0.6 Absolute Neuts (auto) 9.4 H Absolute Lymphs (auto) 2.17 Nucleated RBC % 0 D-Dimer Quant (PE/DVT) < 0.27 L Sodium 138 Potassium 3.8 Chloride 106 Carbon Dioxide 24.0 Anion Gap 8 BUN 16 Creatinine 0.88 Estim Creat Clear Calc 81.79 Est GFR (MDRD) Af Amer 87 Est GFR (MDRD) Non-Af 72 BUN/Creatinine Ratio 18.2 Glucose 116 H Calcium 9.3 Troponin I High Sens 350 H* Radiography Chest X-Ray - ED: 1 View, Read by ED Physician, Normal, Heart, Lungs and Mediastinum Diagnostic Testing: Clinical Impression(s) from Imaging Studies Chest X-Ray 06/06/22 09:11 IMPRESSION: Hyperinflation. The lungs are clear. Electronically Signed: Demario Cooper MD at 10:08 EST , EKG Initial EKG: Attestation: I personally reviewed and interpreted this EKG as follows: Interpretation: Sinus Rhythm (Sinus at 67 with no acute ischemia.) Treatment and Re-Evaluation Narrative: CBC was mild elevation of white count at 12.8 but normal differential is noted. D-dimer is negative. Chemistry studies are normal. Patient's troponin is elevated at 350. Chest x-ray per my interpretation is unremarkable with narrow mediastinum. EKG reveals no acute ischemia. After being given a dose of IV labetalol, blood pressure came down to 160 systolic but is now back up to 180. I spoke Dr. Blanca, on-call for cardiology. He is coming to the emergency room to evaluate the patient with likelihood of taking her to the Regional Business Development Manager. Patient is given aspirin at this time. Discharge Plan Triage Chief Complaint: Hypertension ED Provider: Gillian Us Dx/Rx/DC Orders Clinical Impression: Non-ST elevation IN (NSTEMI), Hypertension Prescriptions: No Action montelukast 10 mg tablet 10 mg PO DAILY fluticasone propion-salmeterol [Advair Diskus] 250-50 mcg/dose blister with device 1 inh INHALATION BID norethindrone ac-eth estradiol 1-20 mg-mcg tablet 1 tab PO DAILY levocetirizine 5 mg tablet oxycodone 5 mg Tablet 5 mg PO Q6H PRN PRN (Reason: Pain Score 6-10) 3 Days Qty: 10 0RF Primary Care Provider: Greg Morrell Referrals: Greg Morrell MD [Primary Care Provider] - Disposition Disposition: Acute Care Hospital [facility]
[2022-06-06] MEDS: Labetalol (Prefilled) 20 MG/4 ML 10 MG IV (08:57)
--- NOTE | 2022-06-06 09:11 | RAD_ITS ---
STUDY: X-RAY CHEST REASON FOR EXAM: Female, 52 years old. Chest and back pain. TECHNIQUE: Single AP portable view of the chest. COMPARISON: None. FINDINGS: EKG electrodes are seen. There is evidence of hyperinflation scattered calcified granulomas. There is no demonstrated pleural abnormality. Normal size heart. Calcified bilateral hilar lymph nodes. Normal visualized pulmonary arteries. Normal visualized aortic arch and descending thoracic aorta. Normal visualized thoracic spine. Normal visualized ribs, clavicles, and shoulders. There is no demonstrated abnormality of the visualized soft tissue structures of the upper abdomen. RAD/Chest 1 View (Portable) IMPRESSION: Hyperinflation. The lungs are clear. Electronically Signed: Demario Cooper MD at 10:08 [facility] ,
[2022-06-06 09:13] LABS: Absolute Lymphocyte Count 2.17 X10^3/uL (0.83-4.51); Absolute Neutrophil Count 9.4 X10^3/uL (2.0-7.7); Basophil# 0.08 X10^3/uL; Basophil% 0.6 % (0-1); Eosinophil# 0.13 X10^3/uL; Hematocrit 45.4 % (37-47); Hemoglobin 14.6 g/dL (12.0-15.0); Lymphocyte # 2.17 X10^3/ul (0.83-4.51); Mean Corp Hgb Conc 32.2 g/dL (32-36); Mean Corpuscular Hgb 27.5 pg (27.0-32.0); Mean Corpuscular Volume 85.7 fL (81-99); Mean Platelet Vol. 9.4 fl (6.2-12.0); Monocyte# 0.93 X10^3/uL; Monocyte% 7.3 % (0-10); NRBC Flagged by Analyzer 0 % (0-5); Neutrophil # 9.39 X10^3/uL (2.7-7.7); Neutrophil % 73.7 % (47-70); Platelet Count 382 K/mm3 (150-450); RBC Distribution Width CV 13.1 % (11.6-14.6); RBC Distribution Width SD 40.8 fl (35.1-43.9); White Blood Count 12.8 K/mm3 (4.4-11.0)
[2022-06-06 09:40] LABS: Anion Gap 8 (5-15); BUN 16 mg/dL (7-18); BUN/Creat Ratio 18.2 RATIO (10-20); Calcium,Total 9.3 mg/dL (8.5-10.1); Chloride 106 mmol/L (98-107); Creatinine, Serum 0.88 mg/dL (0.55-1.02); EST Glomerular Filtration Rate 72 mL/min (>60); Est Glom Filt Rate - Afr Amer 87 mL/min (>60); Estimated Creatinine Clearance 81.79 ml/min; Glucose 116 mg/dL (74-106); Potassium 3.8 mmol/L (3.5-5.1); Sodium Level 138 mmol/L (136-145); Troponin-I HS 350 pg/mL (3.0-54.0)
[2022-06-06 09:48] LABS: D-Dimer Quantitative (DVT/PE) < 0.27 FEU/ug/m (0.27-0.49)
--- NOTE | 2022-06-06 10:36 | CON.PCM.CA_ITS ---
Assessment & Plan Assessment/Plan (1) Non-ST elevation PR (NSTEMI): PLAN: She presents with back discomfort and is noted to have abnormal cardiac enzymes suggestive of a non-ST elevation myocardial infarction. I would recommend that we proceed with a left heart catheterization to assess her coronary anatomy. Depending on the findings further recommendations will be made. (2) Hypertension: PLAN: Her blood pressure appears to be uncontrolled. She has not been on previous treatment. I will recommend that after her invasive procedure we will start her on an KEREN inhibitor and a calcium channel joanne. I have explained this to her she understands and agrees to proceed. Thank you for allowing me to participate in the care of your patient. Please don't hesitate to call if any issues arise. HPI Consult Data Date of Consult: 06/06/22 HPI Narrative HPI Narrative: ALINA GUILLERMO, is a 52 F who presents to the emergency room after having some nausea and back pain this weekend. 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 It has been on and off over the weekend and she presented to the hospital and was noted to have a markedly elevated blood pressure. She had been admitted to the hospital in January for a gallbladder problem and at that time was also noted to be hypertensive. It was however chalked up to the fact that she was anxious and she did not receive any treatment for this. This time she presents and is noted to be markedly hypertensive EKG did not demonstrate any significant change but cardiac enzymes with troponin was significantly abnormal. Cardiology was called for follow-up evaluation and management. Patient continues to have mild back discomfort. [facility] Medical History Asthma Home Medications fluticasone 250 mcg-salmeterol 50 mcg/dose blistr powdr for inhalation (Advair Diskus) 1 inh inhalation BID 01/13/22 [History Last Taken 06/06/22] levocetirizine 5 mg tablet 5 mg PO DAILY ALLERGIES 01/13/22 [History Last Taken 06/05/22] montelukast 10 mg tablet 10 mg PO DAILY 01/13/22 [History Last Taken 06/05/22] norethindrone acetate 1 mg-ethinyl estradiol 20 mcg tablet 1 tab PO DAILY 01/13/22 [History Last Taken 06/05/22] acetaminophen 500 mg tablet 1,000 mg PO Q6H PRN Pain 06/06/22 [History Last Taken 06/05/22] multivitamin 1 tab PO DAILY SUPPLEMENT 06/06/22 [History Last Taken 06/06/22] Allergy/AdvReac Type Severity Reaction Status Date / Time Penicillins Allergy Shortness Verified 06/06/22 08:36 of breath Surgical History History of delivery History of cholecystectomy Social History Smoking Status: Never smoker substance use type: does not use ROS Constitutional Constitutional: Denies fever(s) or weight loss Eyes Eyes: Reports systems reviewed and no addt'l complaints, except as documented ENT HEENT: Reports systems reviewed and no addt'l complaints, except as documented Cardiovascular Cardiovascular: Reports chest pain at rest; Denies chest pain with activity, dyspnea at rest, dyspnea on exertion, edema, palpitations or paroxysmal nocturnal dyspnea Respiratory/Chest Respiratory/Chest: Denies dyspnea on exertion, productive cough, shortness of breath at rest or shortness of breath with exertion Gastrointestinal Gastrointestinal: Reports nausea; Denies change in bowel habits, vomiting or weight changes Genitourinary Genitourinary: Denies difficulty urinating Musculoskeletal Musculoskeletal: Denies joint stiffness or muscle weakness Integumentary Integumentary: Denies lesions Neurologic Neurologic: Denies dizziness or syncope Psychiatric Psychiatric: Denies anxiety Endocrine Endocrinology: Denies excessive sweating or fatigue Hematologic/Lymphatic Hematologic/Lymphatic: Denies anemia Allergic/Immunologic Allergic/Immunologic: Denies seasonal rhinorrhea Physical Exam Const alert, oriented x3 and no apparent distress General Appearance: cooperative HEENT hearing grossly normal bilaterally Head and Scalp: atraumatic Eyes EOMs intact bilaterally Neck General: normal visual inspection Chest inspection of chest normal and palpation of chest normal Resp normal respiratory effort Auscultation: clear to auscultation bilaterally Cardio regular rate, regular rhythm, S1 normal heart sound and S2 normal heart sound Jugular Venous Distention: JVD GI normal to inspection, nondistended, normoactive bowel sounds Extremity normal capillary refill and no pedal edema Peripheral Pulses: Yes pulses 2+ throughout and femoral pulses present Skin no rashes or lesions noted Neuro oriented x3 and CN's II-XII intact bilaterally Psych Appearance: grossly normal and appropriate Risk Stratification Risk Stratification Applicable: Yes Age >/= 65: No >/= 3 CAD Risk Factors (HTN, HLD, DM, family hx of CAD, or current smoker): No Aspirin Use in the Past 7 Days: No Severe Angina (>/= episodes in 24 hours): No EKG ST Changes >/= 0.5mm: No Positive Cardiac Marker: Yes RADHA Risk Stratification Score: 1 RADHA % Risk: 5% Risk Objective Data Vital Signs: Vital Signs Temp Pulse Resp BP Pulse Ox O2 Del Method 96.7 F L 67 16 176/108 H 98 Room Air 06/06/22 08:33 06/06/22 10:12 06/06/22 10:12 06/06/22 10:12 06/06/22 10:12 06/06/22 10:12 Oxygen Delivery Method Room Air Weight: 240 lb Body Mass Index (BMI) 34.4 Lab / Micro Data Result Diagrams: 06/06/22 08:58 06/06/22 08:58 Labs: Laboratory Results - last 24 hr 06/06/22 08:58: WBC 12.8 H, RBC 5.30, Hgb 14.6, Hct 45.4, MCV 85.7, MCH 27.5, MCHC 32.2, RDW Std Deviation 40.8, RDW Coeff of Sarina 13.1, Plt Count 382, MPV 9.4, Immature Gran % (Auto) 0.400, Neut % (Auto) 73.7 H, Lymph % (Auto) 17.0 L, [place] % (Auto) 7.3, Eos % (Auto) 1.0, Baso % (Auto) 0.6, Absolute Neuts (auto) 9.4 H, Absolute Lymphs (auto) 2.17, Nucleated RBC % 0 06/06/22 08:58: D-Dimer Quant (PE/DVT) < 0.27 L 06/06/22 08:58: Sodium 138, Potassium 3.8, Chloride 106, Carbon Dioxide 24.0, Anion Gap 8, BUN 16, Creatinine 0.88, Estim Creat Clear Calc 81.79, Est GFR (MDRD) Af Amer 87, Est GFR (MDRD) Non-Af 72, BUN/Creatinine Ratio 18.2, Glucose 116 H, Calcium 9.3, Troponin I High Sens 350 H* Cardiology Labs/Tests 06/06/22 08:58: WBC 12.8 H, RBC 5.30, Hgb 14.6, Hct 45.4, MCV 85.7, MCH 27.5, MCHC 32.2, Plt Count 382, MPV 9.4, Immature Gran % (Auto) 0.400, Neut % (Auto) 73.7 H, Lymph % (Auto) 17.0 L, [place] % (Auto) 7.3, Eos % (Auto) 1.0, Baso % (Auto) 0.6, Absolute Neuts (auto) 9.4 H, Nucleated RBC % 0 06/06/22 08:58: D-Dimer Quant (PE/DVT) < 0.27 L 06/06/22 08:58: Sodium 138, Potassium 3.8, Chloride 106, Carbon Dioxide 24.0, Anion Gap 8, BUN 16, Creatinine 0.88, Est GFR (MDRD) Af Amer 87, Est GFR (MDRD) Non-Af 72, BUN/Creatinine Ratio 18.2, Glucose 116 H, Calcium 9.3 Rhythm: EKG: ECHO: Stress Test: Cardiac Cath: PCI: CT Surgery: Holter monitor: EPS: PPM: CXR: Chest CT Scan: Radiography Diagnostic Testing: Radiology Impression Chest X-Ray 06/06/22 09:11 IMPRESSION: Hyperinflation. The lungs are clear. Electronically Signed: Demario Cooper MD at 10:08 EST , EKG Initial EKG: Attestation: I personally reviewed and interpreted this EKG as follows: (Normal sinus rhythm, normal axis and nonspecific ST changes noted.)
[2022-06-06] MEDS: Aspirin 81 MG TAB.CHEW 324 MG PO (10:56)
[2022-06-06] MEDS: Nitroglycerin Infusion 250 ML 3 MG CONT INF (10:57)
[2022-06-06 11:10] LABS: Internal QC Validated? YES +Cl - CLEAR BKGD; Pregnancy, Serum, hCG Quali. NEGATIVE Negative
--- NOTE | 2022-06-06 11:15 | HP.PCM.HOS_ITS ---
[facility] - General General Date of Service: 06/06/22 Chief Complaint: elevated blood pressure, not feeling well HPI Narrative ALINA GUILLERMO, is a 52 F with a PMh as outlined who presents via the ED on 06/06/2022 with a comlplaint of elevated blood pressure and generally not feeling well for several days prior to admisison. SHe also complaind of some pain in her back, in between her shoulder blades. She however thought her symptoms were likely due to some strenous activities of daily living. She worked as a teacher, and [facility] ad it was found to be markedly elevated, at 190/130/ She dient have any known history of hypertension. She denies any type of mass, dizziness, palpitations, chest pain, nausea or vomiting or medical symptoms. Review of symptoms otherwise negative. Vitals in the ED were blood pressure of 179/127, temperature of 96.7 and pulse rate of 64. Respiratory rate was 16 and she was saturating 98% on room air. CBC showed WBC of 12.8 and hemoglobin of 14.6 with platelets of 382. Chemistry was unremarkable and D-dimer was low. Initial troponin was 350. EKG showed no acute ST changes and chest x-ray showed hyperinflation but no acute cardiopulmonary activity. Cardiology was consulted. Patient decided to take emergently to the Services Program Manager. She was given a dose of labetalol in the ED and her blood pressure came down to the 160s. She was also given aspirin and has been admitted to be managed for non-STEMI and hypertensive emergency. [facility] Medical History Asthma Home Medications fluticasone 250 mcg-salmeterol 50 mcg/dose blistr powdr for inhalation (Advair Diskus) 1 inh inhalation BID 01/13/22 [History Last Taken 06/06/22] levocetirizine 5 mg tablet 5 mg PO DAILY ALLERGIES 01/13/22 [History Last Taken 06/05/22] montelukast 10 mg tablet 10 mg PO DAILY 01/13/22 [History Last Taken 06/05/22] norethindrone acetate 1 mg-ethinyl estradiol 20 mcg tablet 1 tab PO DAILY 01/13/22 [History Last Taken 06/05/22] acetaminophen 500 mg tablet 1,000 mg PO Q6H PRN Pain 06/06/22 [History Last Taken 06/05/22] multivitamin 1 tab PO DAILY SUPPLEMENT 06/06/22 [History Last Taken 06/06/22] Allergy/AdvReac Type Severity Reaction Status Date / Time Penicillins Allergy Shortness Verified 06/06/22 08:36 of breath Surgical History History of delivery History of cholecystectomy Social History Smoking Status: Never smoker substance use type: does not use ROS Constitutional Constitutional: Denies anorexia, change in weight, chills, fatigue, fever(s), malaise or weakness Eyes Eyes: Denies change in vision ENT HEENT: Denies dysphagia, headache(s), nasal congestion or sore throat Cardiovascular Cardiovascular: Denies chest pain, dyspnea on exertion, edema, lightheadedness, orthopnea, palpitations, paroxysmal nocturnal dyspnea, rapid heart rate or syncope Respiratory/Chest Respiratory/Chest: Denies cough, dyspnea, productive cough, shortness of breath at rest or shortness of breath with exertion Gastrointestinal Gastrointestinal: Denies abdominal pain, constipation, diarrhea, dyspepsia, nausea or vomiting Genitourinary Genitourinary: Denies burning urination or dysuria Neurologic Neurologic: Denies confusion, dizziness, focal weakness or headache(s) Psychiatric Psychiatric: Denies anxiety or depression Endocrine Endocrinology: Denies change in body appearance Vital Signs Vital Signs Vital Signs: 06/06/22 08:33 06/06/22 08:59 06/06/22 09:10 Temperature 96.7 F L Temperature Source Temporal Pulse Rate 89 74 Respiratory Rate 18 16 Respiratory Effort Respiratory Pattern Blood Pressure 247/122 H 187/112 H 161/110 H Blood Pressure Mean 163 137 127 Pulse Ox 98 95 Oxygen Delivery Method Room Air Room Air 06/06/22 09:10 06/06/22 09:17 06/06/22 10:12 Temperature Temperature Source Pulse Rate 67 Respiratory Rate 16 Respiratory Effort Normal Respiratory Pattern Normal Blood Pressure 180/106 H 176/108 H Blood Pressure Mean 130 130 Pulse Ox 98 Oxygen Delivery Method Room Air 06/06/22 10:57 Temperature Temperature Source Pulse Rate 64 Respiratory Rate Respiratory Effort Respiratory Pattern Blood Pressure 179/127 H Blood Pressure Mean Pulse Ox Oxygen Delivery Method Weight Weight: 240 lb Body Mass Index (BMI) 34.4 Physical Exam Const alert, oriented x3 and no apparent distress General Appearance: cooperative HEENT normocephalic, head/scalp atraumatic, hearing grossly normal bilaterally and moist oral mucous membranes Mouth: oral and palatal mucosa normal Eyes PERRL, EOMs intact bilaterally and conjunctivae normal Neck no lymphadenopathy and supple Resp normal respiratory effort, no retractions, no use of accessory muscles and clear to auscultation bilaterally Cardio regular rate, regular rhythm, S1 normal heart sound, S2 normal heart sound and no murmurs GI normal to inspection, nondistended, normoactive bowel sounds, soft to palpation, non-tender and non-distended Extremity normal to inspection, full ROM and no clubbing, cyanosis or edema Neuro oriented x3, CN's II-XII intact bilaterally, moves all extremities and no focal motor deficits Sensorium / Orientation: awake and alert Motor Exam: strength 5/5 throughout Psych affect normal Results Lab / Micro Data Result Diagrams: 06/06/22 08:58 06/06/22 08:58 Labs: Laboratory Results - last 24 hr 06/06/22 08:58: WBC 12.8 H, RBC 5.30, Hgb 14.6, Hct 45.4, MCV 85.7, MCH 27.5, MCHC 32.2, RDW Std Deviation 40.8, RDW Coeff of Sarina 13.1, Plt Count 382, MPV 9.4, Immature Gran % (Auto) 0.400, Neut % (Auto) 73.7 H, Lymph % (Auto) 17.0 L, Mobile % (Auto) 7.3, Eos % (Auto) 1.0, Baso % (Auto) 0.6, Absolute Neuts (auto) 9.4 H, Absolute Lymphs (auto) 2.17, Nucleated RBC % 0 06/06/22 08:58: D-Dimer Quant (PE/DVT) < 0.27 L 06/06/22 08:58: Sodium 138, Potassium 3.8, Chloride 106, Carbon Dioxide 24.0, Anion Gap 8, BUN 16, Creatinine 0.88, Estim Creat Clear Calc 81.79, Est GFR (MDRD) Af Amer 87, Est GFR (MDRD) Non-Af 72, BUN/Creatinine Ratio 18.2, Glucose 116 H, Calcium 9.3, Troponin I High Sens 350 H* 06/06/22 10:50: Serum , Qual NEGATIVE Radiology Impression Chest X-Ray 06/06/22 09:11 IMPRESSION: Hyperinflation. The lungs are clear. Electronically Signed: Demario Cooper MD at 10:08 EST , Assessment & Plan Assessment/Plan (1) Non-ST elevation NH (NSTEMI): (2) Hypertensive emergency: PLAN: Plan #Nonstemi * initial troponin was 350. EKG showed no acute ST changes * was given a dose of aspirin in the ED and taken emergently to cathode washer * cathode washer findings: showed 99% stenosis of hte RCA, and had drug eluting stent placed. * order 2D echo * aspirin, high intensity statin, and brilinta * #Hypertensive emergency * BP was 190/127 at time of admission. Went down to 160s after being given IV labetalol * will initiate oral BP meds; IV hydralazine prn * started on lisinopril 20mg daily * IV hydralazine prn * #Asthma * not in exacerbation * on advair and montelucast * DVT prophylaxis: lovenox Code status: full code' * Patient counseled extensively about different types of CODE STATUS including full code, DNR CCA and DNR CCA. Patient elects to be full code. * Total [id number] time 16 minutes. Charges/Coding Visit Charges Inpatient E&M: 14925 Init Hosp L3 Procedures Hospitalists Procedures: 05375 Advncd Care Plan 30 Min
--- NOTE | 2022-06-06 11:59 | CL.D_ITS ---
Patient Name: ALINA GUILLERMO Study Date: 06/06/2022 Performing: Joshua Blanca MD Ht: 70 inches 177.8 cm : 1970 Wt: 240 lbs 108.86 kg Age: 52 Gender: female BSA: 2.26 PROCEDURE(S) PERFORMED DC01-(37526)LHC/COR/LV CLINICAL PROFILE AND INDICATIONS Indications: Worsening Angina Heart Failure: None Stress/Imaging Stress/Image Study Performed: No CAD Presentations: Unstable angina. CONCLUSIONS Severe single-vessel disease with high-grade right coronary artery stenosis. RECOMMENDATIONS Referred for immediate PCI DESCRIPTION OF PROCEDURE The patient arrived to the procedure lab. The risks and benefits of the procedure as well as a full description of our services here and current unavailability of surgical backup were fully explained to the patient and/or their significant other prior to the catheterization. The Timeout was completed, verifying the correct patient and procedure. The patient's procedural site was prepped and draped in the usual fashion. Local anesthetic was given subcutaneously to right radial region with Lidocaine 2%. Using a modified Seldinger technique, arterial access was obtained via the right radial artery, a 6Fr sheath was inserted. Right Coronary Artery selective angiography was then performed in multiple views using a 5 Fr. 4.0 [place] catheter. Left Coronary Artery selective angiography was performed in multiple views using a 5 Fr. 4.0 [place] catheter. Left Ventriculography was performed in RAMOS projection using a 5 Fr. Pigtail catheter. LV to AO pullback pressures were then recorded. CORONARY ANGIOGRAPHY DOMINANCE: Right Dominant LEFT HEART ASSESSMENT Left Ventricular Ejection Fraction: by LV Gram 60 % Inferior Basal Hypokinesis - Mild Normal Left Ventricular systolic function LEFT MAIN: Angiographically normal LEFT ANTERIOR DESCENDING ARTERY: Mild luminal irregularities CIRCUMFLEX ARTERY: No significant disease noted RIGHT CORONARY ARTERY: Dominant large vessel with proximal smooth 60% stenosis followed by a 99% mid segment stenosis. The distal vessel has minimal disease. COMPLICATIONS PROCEDURE MEDICATIONS Fentanyl 50 mcg IV Versed 1 mg IV Versed 1 mg IV Versed 1 mg IV Oxygen: 2 L/min via nasal cannula Brilinta 180 mg PO @ 06/06/2022 11:47:28 Heparin given IA 06/06/2022 11:32:26 Nitro glycerin 25mg / 250ml D5W @ 5 mcg/min IV maintained. 06/06/2022 11:25:27 Verapamil 2.5mg, 3000 units of Heparin given IA 06/06/2022 11:32:26 SUMMARY OF HEMODYNAMIC DATA Time AIR REST ECG 11:12:29 AO 162/97 (128) SA 11:33:49 LV 148/2, 6 11:39:11 LV 152/2, 17 11:39:19 LV 153/9, 20 11:39:57 LV 176/9, 22 11:40:05 LVp 180/7, 16 11:40:08 AOp 160/85 (117) 11:40:16 Signed By Joshua Blanca MD On 06/06/2022 11:58:30 Joshua Blanca MD
--- NOTE | 2022-06-06 13:13 | EKG12_ITS ---
Test Reason : POST PCI Blood Pressure : / mmHG Vent. Rate : 069 BPM Atrial Rate : 069 BPM P-R Int : 136 ms QRS Dur : 090 ms QT Int : 430 ms P-R-T Axes : 046 048 041 degrees QTc Int : 460 ms Normal sinus rhythm Normal ECG When compared with ECG of 06-JUN-2022 09:02, MANUAL COMPARISON REQUIRED, DATA IS UNCONFIRMED Confirmed by AJ MARQUEZ, JOSHUA ([id number]), editor in chief newspaper VIDA TIMMONS ([id number]) on 06/07/2022 9:12:29 AM Referred By: Joshua Blanca Confirmed By:JOSHUA BLANCA MD
--- NOTE | 2022-06-06 14:30 | CRPHASE1 ---
Patient Communication Former Patient:: Phase I PHII Cardiac Rehab Discussed with Patient:: Yes Guide to Cardiac Rehab Given to Patient:: Yes Cardiac Rehab Facility Choice List Given to Patient:: Yes Choice Program [facility] CR PHII:: Communication Given to CR Choice Program Other:: Communication Given to CR Slice Cutting Machine Operator Helper:: Ricarda Maldonado Phase II Cardiac Rehab:: Yes Sessions:: 36 sessions - 3 days/wk, 12 weeks Cardiac Rehabilitation Info Cardiac Rehabilitation Program Information: Cardiac Rehab The cardiac rehab team at [facility] consists of highly skilled exercise physiologists, nurses, respiratory therapists and physicians working together with you. Our purpose is to help you have a full recovery and achieve the goals you set for yourself. Over the years many of our patients have returned to activities they assumed they would never do again! We can help restore your confidence and motivation to make lifestyle changes that can have a significant impact on your health and quality of life! We can help answer questions and concerns you may have about exercise, lifestyle, medications, diet, stress and anxiety which are common following a hospitalization. WE monitor ECG and vital signs during exercise and discuss your progress with you and report to your physician(s). Cardiac Rehab is proven to help reduce readmissions, improve functional capacity and lower recurrence of problems with your heart. Our Cardiac Rehab program is Certified by the [place] [employer] Pulmonary [employer] (AACVPR) and Accredited by the [place] [employer] through our [facility]. You can contact us at . We invite you to call us with your questions or to get started in our program. If you have other questions or concerns be sure to ask your physician/provider during your follow-up visit. WE look forward to seeing you!
--- NOTE | 2022-06-06 14:32 | CRPH1.INSTRU ---
General Education CAD and cardiac anatomy and function:: Patient communicates acknowledgment Explanation of diagnoses and procedures:: Patient communicates acknowledgment Sign/Symptoms of IA:: Patient communicates acknowledgment Antiplatelet therapy: Patient communicates acknowledgment Proper use of NTG-SL: Patient communicates acknowledgment Emergency procedures and activation of EMS: Patient communicates acknowledgment Compliance of all prescribed medications: Patient communicates acknowledgment Dyslipidemia Patient Dyslipidemia Risk Factors Are:: Total Cholesterol, Triglycerides Recommendations Include:: Lipid profile not available Dyslipidemia Response Code:: Patient communicates acknowledgment Overweight/Obesity Patient Overweight/Obesity Risk Factors Are:: Obesity - > or = 30 Recommendations Include:: Weight loss of 5-10%, Reduced calorie diet, Exercise 5-7 times/week Overweight/Obesity:: Patient communicates acknowledgment Hypertension Patient Hypertension Risk Factors Are:: No documented hx of HTN Recommendations Include:: Maintain BP <130/85 Hypertension:: Patient communicates acknowledgment Heart Disease Patient Heart Disease Risk Factors Are:: Family history of heart disease < 65 years old Recommendations Include:: Educated family members of their risk Heart Disease Response Code:: Patient communicates acknowledgment Sedentary Patient Sedentary Risk Factors Are:: Lack of regular exercise Recommendations Include:: Aerobic exercise 5-7 times/week for 20-30 minutes continuously, Benefits of regular exercise, Discussed home walking program, Monitored Outpatient Cardiac Rehab Sedentary Response Code:: Patient communicates acknowledgment Stress Patient Stress Risk Factors Are:: Patient denies stress as a risk factor Recommendations Include:: Identification of stressors, and assessment of coping skills, Stress management techniques Stress Response Code:: Patient communicates acknowledgment
--- NOTE | 2022-06-06 15:14 | CL.I_ITS ---
Patient Name: ALINA GUILLERMO Study Date: 06/06/2022 Performing: Tammi Maldonado MD Ht: 70 inches 177.8 cm : 1970 Wt: 240 lbs 108.86 kg Age: 52 Gender: female BSA: 2.26 PROCEDURE(S) PERFORMED IC12-(58268/[id number])ROBERT W/WO PTCA, SINGLE CORONARY ARTERY CLINICAL PROFILE AND CO-MORBIDITIES Indications: Worsening Angina Heart Failure: None Stress/Imaging Stress/Image Study Performed: No CAD Presentations: Unstable angina. CONCLUSIONS Successful ROBERT to mRCA RECOMMENDATIONS DESCRIPTION OF PROCEDURE The patient arrived to the procedure lab. The risks and benefits of the procedure as well as a full description of our services here and current unavailability of surgical backup were fully explained to the patient and/or their significant other prior to the catheterization. The Timeout was completed, verifying the correct patient and procedure. The patient's procedural site was prepped and draped in the usual fashion. Local anesthetic was given subcutaneously to right radial region with Lidocaine 2% Using a modified Seldinger technique,arterial access was obtained via the right radial artery, a 6Fr sheath was inserted. Right Coronary Artery selective angiography was then performed in multiple views using a 5 Fr. 4.0 [place] catheter. Left Coronary Artery selective angiography was performed in multiple views using a 5 Fr. 4.0 [place] catheter. Left Ventriculography was performed in RAMOS projection using a 5 Fr. Pigtail catheter. LV to AO pullback pressures were then recorded.The images were reviewed and options discussed. A decision was then made to proceed with an Intervention, IVUS or other adjunct procedure. JR 4.0 Guide catheter was inserted and engaged into the RCA. Runthrough Guide wire was advanced to the RCA. 3.0 x 12 SC Euphora Balloon catheter was inserted. Balloon catheter was advanced across lesion in the right coronary, mid. PTCA balloon inflated at 8 atms for 4 secs. PTCA balloon inflated at 2 atms for 5 secs. 3.5 x 20 [place]ge Balloon catheter was inserted. Balloon catheter was advanced across lesion in the right coronary, mid. PTCA balloon inflated at 6 atms for 11 secs. PTCA balloon inflated at 10 atms for 20 secs. Angiogram performed post balloon dilatation. 4 x 38 Kulwant Drug Eluting stent was advanced across the lesion in the right coronary, mid. Angiogram performed pre stent deployment. Angiogram performed post stent deployment. The arterial sheath was pulled and a TR Band was applied for hemostasis. 13cc air inserted INTERVENTION INFORMATION LESION SITE: RCA (Mid) Lesion Complexity: High/C, chronic total occlusion: No, lesion at bifurcation: No, thrombus present: No, lesion length: 35 mm, culprit lesion: Yes, Previously treated lesion: No Pre Stenosis: 95 % Pre intervention RADHA flow: 3 PROCEDURE: Drug Eluting Stent with pre dilatation. Post Stenosis: 0 % Post intervention RADHA flow: 3 Lesion Devices: Terumo .014 180cm Runthrough Extra Floppy straight Cordis 6 Fr JR4 100cm Guide Catheter Medtronic SC EUPHORA RX 3.0x12 BALLOON Ryan Sci EMERGE MR 3.50x20 BALLOON Medtronic Resolute Kulwant RX ROBERT 4.0x38 COMPLICATIONS No Complications PROCEDURE MEDICATIONS Fentanyl 50 mcg IV Versed 1 mg IV Versed 1 mg IV Versed 1 mg IV Versed 1 mg IV Oxygen: 2 L/min via nasal cannula Brilinta 180 mg PO @ 06/06/2022 11:47:28 Heparin given IA 06/06/2022 11:32:26 Nitro glycerin 25mg / 250ml D5W @ 5 mcg/min IV maintained. 06/06/2022 11:25:27 Verapamil 2.5mg, 3000 units of Heparin given IA 06/06/2022 11:32:26 SUMMARY OF HEMODYNAMIC DATA Time AIR REST ECG 11:12:29 AO 162/97 (128) SA 11:33:49 LV 148/2, 6 11:39:11 LV 152/2, 17 11:39:19 LV 153/9, 20 11:39:57 LV 176/9, 22 11:40:05 LVp 180/7, 16 11:40:08 AOp 160/85 (117) 11:40:16 ECG 12:55:17 Signed By Tammi Maldonado MD On 06/06/2022 15:13:59 Tammi Maldonado MD
--- NOTE | 2022-06-06 17:46 | ECHOD_ITS ---
Reason For Study: CHEST PAIN Procedure This was a 2D Doppler, Color Flow transthoracic echocardiogram. Exam performed portable in patient room. Left Ventricle Normal LV size. Left ventricular systolic function is normal. The estimated ejection fraction is 65 %. Stage 1 diastolic dysfunction. No regional wall motion abnormalities noted. Right Ventricle Normal RV size. Normal systolic function. Atria Normal left atrium. Normal right atrium. Mitral Valve Normal mitral valve. Tricuspid Valve Normal tricuspid valve. Aortic Valve Normal aortic valve. Trisinus/trileaflet aortic valve. Pulmonic Valve Normal pulmonic valve. Great Vessels Normal aortic root. The pulmonary artery is normal size. Normal inferior vena cava. Pericardium/Pleural No pericardial effusion. MMode/2D Measurements & Calculations LVIDd: 5.6 cm IVSd: 1.1 cm Ao root diam: 3.3 cm LVIDs: 3.0 cm LVPWd: 1.3 cm FS: 47.2 % LAV(MOD-sp4): 88.0 ml LVAd ap4: 27.8 cm2 LVAd ap2: 30.8 cm2 LVLd ap4: 7.9 cm LVLd ap2: 8.8 cm EDV(MOD-sp4): 79.5 ml EDV(MOD-sp2): 90.1 ml EDV(sp4-el): 82.8 ml EDV(sp2-el): 91.9 ml LVAs ap4: 12.6 cm2 LVAs ap2: 15.3 cm2 LVLs ap4: 6.1 cm LVLs ap2: 7.1 cm ESV(MOD-sp4): 22.4 ml ESV(MOD-sp2): 31.0 ml ESV(sp4-el): 22.2 ml ESV(sp2-el): 27.9 ml EF(MOD-sp4): 71.8 % EF(MOD-sp2): 65.6 % EF(sp4-el): 73.2 % SV(MOD-sp4): 57.0 ml SV(MOD-sp2): 59.1 ml SV(sp4-el): 60.6 ml LA dimension(2D): 4.0 cm LA A4 area: 26.3 cm2 RA A4 area: 10.5 cm2 Time Measurements MV dec time: 0.28 sec Doppler Measurements & Calculations MV E max onur: 62.5 cm/sec Lat Peak E' Onur: 14.3 cm/sec Med Peak E' Onur: 6.1 cm/sec MV A max onur: 65.6 cm/sec E/E' lat: 4.4 E/E' med: 10.2 MV E/A: 0.95 MV V2 max: 73.2 cm/sec MV dec slope: 228.0 cm/sec2 Ao V2 max: 133.2 cm/sec MV max P.2 mmHg Ao max P.1 mmHg MV V2 mean: 42.1 cm/sec Ao V2 mean: 89.6 cm/sec MV mean P.86 mmHg Ao mean P.7 mmHg MV V2 VTI: 24.0 cm Ao V2 VTI: 26.7 cm AV (velocity ratio): 0.75 LV V1 max: 108.3 cm/sec PA V2 max: 109.6 cm/sec LV V1 max P.7 mmHg PA V2 mean: 78.8 cm/sec LV V1 mean P.6 mmHg LV V1 mean: 75.8 cm/sec LV V1 VTI: 19.9 cm ECHO/Echo Complete Interpretation Summary Normal LV size. Left ventricular systolic function is normal. The estimated ejection fraction is 65 %. Stage 1 diastolic dysfunction. Structurally normal valves. Ordering Physician: Edelmira Castro Referring Physician: Joshua Blanca Performed By: Margoth Kong RCS
[2022-06-06] MEDS: 0.9% Normal Saline 1,000 ML 50 ML IV (18:58)
[2022-06-06 19:27] LABS: Hemoglobin A1c 5.7 % (3.8-5.6)
[2022-06-06] MEDS: Loratadine 10 MG Tablet PO (21:17)
[2022-06-06] MEDS: Montelukast 10 MG Tablet PO (21:17)
[2022-06-06] MEDS: 0.9% Saline Lock 10 ML Syringe IV (21:17)
[2022-06-06] MEDS: Budesonide Respules 0.5 MG/2 ML AMPUL.NEB. INHALATION (21:39)
[2022-06-07 03:00] VITALS: PULSE 62
[2022-06-07 03:33] VITALS: BP 141/93; PULSE 72; RESP 16; TEMP 36.8; O2SAT 96
--- NOTE | 2022-06-07 05:30 | EKG12_ITS ---
Test Reason : AM EKG Blood Pressure : / mmHG Vent. Rate : 067 BPM Atrial Rate : 067 BPM P-R Int : 146 ms QRS Dur : 084 ms QT Int : 446 ms P-R-T Axes : 059 050 002 degrees QTc Int : 471 ms Normal sinus rhythm Normal ECG When compared with ECG of 06-JUN-2022 13:13, MANUAL COMPARISON REQUIRED, DATA IS UNCONFIRMED Confirmed by AJ MARQUEZ, JOSHUA ([id number]), editor producer VIDA TIMMONS ([id number]) on 06/07/2022 2:07:02 PM Referred By: Joshua Blanca Confirmed By:JOSHUA BLANCA MD
[2022-06-07 06:53] LABS: Absolute Lymphocyte Count 2.89 X10^3/uL (0.83-4.51); Absolute Neutrophil Count 10.3 X10^3/uL (2.0-7.7); Basophil# 0.09 X10^3/uL; Basophil% 0.6 % (0-1); Eosinophil# 0.13 X10^3/uL; Eosinophils% 0.9 % (0-5); Hemoglobin 14.2 g/dL (12.0-15.0); Lymphocyte # 2.89 X10^3/ul (0.83-4.51); Lymphocyte % 19.7 % (19-41); Mean Corp Hgb Conc 32.3 g/dL (32-36); Mean Corpuscular Hgb 27.7 pg (27.0-32.0); Mean Corpuscular Volume 85.9 fL (81-99); Mean Platelet Vol. 9.3 fl (6.2-12.0); Monocyte# 1.21 X10^3/uL; Monocyte% 8.2 % (0-10); NRBC Flagged by Analyzer 0 % (0-5); Neutrophil # 10.29 X10^3/uL (2.7-7.7); Neutrophil % 70.1 % (47-70); Platelet Count 398 K/mm3 (150-450); RBC Distribution Width CV 13.6 % (11.6-14.6); RBC Distribution Width SD 42.4 fl (35.1-43.9); Red Blood Count 5.12 M/mm3 (4.2-5.4); White Blood Count 14.7 K/mm3 (4.4-11.0)
[2022-06-07] MEDS: Budesonide Respules 0.5 MG/2 ML AMPUL.NEB. INHALATION (07:02)
[2022-06-07 07:24] LABS: ALB/GLOB Ratio 0.7 RATIO (0.9-2.4); AST(SGOT) 25 U/L (15-37); Alanine Aminotransfer ALT/SGPT 28 U/L (13-56); Albumin, Serum 3.1 g/dL (3.2-5.0); Alkaline Phosphatase 45 U/L (45-117); Anion Gap 7 (5-15); BUN 12 mg/dL (7-18); BUN/Creat Ratio 14.5 RATIO (10-20); Calcium,Total 8.9 mg/dL (8.5-10.1); Chloride 105 mmol/L (98-107); Cholesterol 189 mg/dL (200); Creatinine, Serum 0.82 mg/dL (0.55-1.02); EST Glomerular Filtration Rate 78 mL/min (>60); Est Glom Filt Rate - Afr Amer 94 mL/min (>60); Estimated Creatinine Clearance 87.77 ml/min; Globulin 4.2 g/dL (2.2-4.2); Glucose 109 mg/dL (74-106); High Density Lipoprotein 61 mg/dL; Potassium 3.7 mmol/L (3.5-5.1); Protein, Total 7.3 g/dL (6.4-8.2); Sodium Level 138 mmol/L (136-145); Triglycerides 112 mg/dL; Very Low Density Lipoprotein 22 mg/dL (5-40)
[2022-06-07 07:30] VITALS: PULSE 66; RESP 21
--- NOTE | 2022-06-07 07:32 | PCM.PN.CARD ---
Subjective Subjective Patient seen and evaluated this morning. Appears to be doing well. No complaints. Objective Data Vital Signs: Vital Signs Temp Pulse Resp BP Pulse Ox O2 Del Method 98.3 F 66 21 H 141/93 H 96 Room Air 06/07/22 03:33 06/07/22 07:30 06/07/22 07:30 06/07/22 03:33 06/07/22 03:33 06/07/22 04:29 Oxygen Delivery Method Room Air Weight: 249 lb 1.6 oz Body Mass Index (BMI) 35.7 Intake & Output: Intake and Output for Last 24 Hours 06/05/22 06/06/22 06/07/22 23:59 23:59 23:59 Intake Total 11.65 / 311.65 911.67 / 911.67 Balance 11.65 / 311.65 911.67 / 911.67 Lab / Micro Data Result Diagrams: 06/07/22 06:20 06/07/22 06:20 Labs: Laboratory Results - last 24 hr 06/06/22 08:58: WBC 12.8 H, RBC 5.30, Hgb 14.6, Hct 45.4, MCV 85.7, MCH 27.5, MCHC 32.2, RDW Std Deviation 40.8, RDW Coeff of Sarina 13.1, Plt Count 382, MPV 9.4, Immature Gran % (Auto) 0.400, Neut % (Auto) 73.7 H, Lymph % (Auto) 17.0 L, [place]cock % (Auto) 7.3, Eos % (Auto) 1.0, Baso % (Auto) 0.6, Absolute Neuts (auto) 9.4 H, Absolute Lymphs (auto) 2.17, Nucleated RBC % 0 06/06/22 08:58: D-Dimer Quant (PE/DVT) < 0.27 L 06/06/22 08:58: Sodium 138, Potassium 3.8, Chloride 106, Carbon Dioxide 24.0, Anion Gap 8, BUN 16, Creatinine 0.88, Estim Creat Clear Calc 81.79, Est GFR (MDRD) Af Amer 87, Est GFR (MDRD) Non-Af 72, BUN/Creatinine Ratio 18.2, Glucose 116 H, Calcium 9.3, Troponin I High Sens 350 H* 06/06/22 08:58: Hemoglobin A1c 5.7 H 02/06/23 10:50: Serum , Qual NEGATIVE 06/07/22 06:20: WBC 14.7 H, RBC 5.12, Hgb 14.2, Hct 44.0, MCV 85.9, MCH 27.7, MCHC 32.3, RDW Std Deviation 42.4, RDW Coeff of Sarina 13.6, Plt Count 398, MPV 9.3, Immature Gran % (Auto) 0.500, Neut % (Auto) 70.1 H, Lymph % (Auto) 19.7, [place] % (Auto) 8.2, Eos % (Auto) 0.9, Baso % (Auto) 0.6, Absolute Neuts (auto) 10.3 H, Absolute Lymphs (auto) 2.89, Nucleated RBC % 0 06/07/22 06:20: Sodium 138, Potassium 3.7, Chloride 105, Carbon Dioxide 26.0, Anion Gap 7, BUN 12, Creatinine 0.82, Estim Creat Clear Calc 87.77, Est GFR (MDRD) Af Amer 94, Est GFR (MDRD) Non-Af 78, BUN/Creatinine Ratio 14.5, Glucose 109 H, Calcium 8.9, Total Bilirubin 0.30, AST 25, ALT 28, Alkaline Phosphatase 45, Total Protein 7.3, Albumin 3.1 L, Globulin 4.2, Albumin/Globulin Ratio 0.7 L, Triglycerides 112, Cholesterol 189, LDL Cholesterol 106, VLDL Cholesterol 22, HDL Cholesterol 61 Cardiology Labs/Tests 06/06/22 08:58: WBC 12.8 H, RBC 5.30, Hgb 14.6, Hct 45.4, MCV 85.7, MCH 27.5, MCHC 32.2, Plt Count 382, MPV 9.4, Immature Gran % (Auto) 0.400, Neut % (Auto) 73.7 H, Lymph % (Auto) 17.0 L, [place] % (Auto) 7.3, Eos % (Auto) 1.0, Baso % (Auto) 0.6, Absolute Neuts (auto) 9.4 H, Nucleated RBC % 0 06/06/22 08:58: D-Dimer Quant (PE/DVT) < 0.27 L 06/06/22 08:58: Sodium 138, Potassium 3.8, Chloride 106, Carbon Dioxide 24.0, Anion Gap 8, BUN 16, Creatinine 0.88, Est GFR (MDRD) Af Amer 87, Est GFR (MDRD) Non-Af 72, BUN/Creatinine Ratio 18.2, Glucose 116 H, Calcium 9.3 06/06/22 08:58: Hemoglobin A1c 5.7 H 06/07/22 06:20: WBC 14.7 H, RBC 5.12, Hgb 14.2, Hct 44.0, MCV 85.9, MCH 27.7, MCHC 32.3, Plt Count 398, MPV 9.3, Immature Gran % (Auto) 0.500, Neut % (Auto) 70.1 H, Lymph % (Auto) 19.7, [place] % (Auto) 8.2, Eos % (Auto) 0.9, Baso % (Auto) 0.6, Absolute Neuts (auto) 10.3 H, Nucleated RBC % 0 06/07/22 06:20: Sodium 138, Potassium 3.7, Chloride 105, Carbon Dioxide 26.0, Anion Gap 7, BUN 12, Creatinine 0.82, Est GFR (MDRD) Af Amer 94, Est GFR (MDRD) Non-Af 78, BUN/Creatinine Ratio 14.5, Glucose 109 H, Calcium 8.9, Total Bilirubin 0.30, Triglycerides 112, Cholesterol 189, LDL Cholesterol 106, VLDL Cholesterol 22, HDL Cholesterol 61 Rhythm: EKG: ECHO: Stress Test: Cardiac Cath: PCI: CT Surgery: Holter monitor: EPS: PPM: CXR: Chest CT Scan: Radiography Diagnostic Testing: Radiology Impression Chest X-Ray 06/06/22 09:11 IMPRESSION: Hyperinflation. The lungs are clear. Electronically Signed: Demario Cooper MD at 10:08 EST , Physical Exam Const alert, oriented x3 and no apparent distress General Appearance: cooperative HEENT hearing grossly normal bilaterally Head and Scalp: atraumatic Eyes EOMs intact bilaterally Neck General: normal visual inspection Chest inspection of chest normal and palpation of chest normal Resp normal respiratory effort Auscultation: clear to auscultation bilaterally Cardio regular rate, regular rhythm, S1 normal heart sound and S2 normal heart sound Jugular Venous Distention: JVD GI normal to inspection, nondistended, normoactive bowel sounds Extremity normal capillary refill and no pedal edema Peripheral Pulses: Yes pulses 2+ throughout and femoral pulses present Skin no rashes or lesions noted Neuro oriented x3 and CN's II-XII intact bilaterally Psych Appearance: grossly normal and appropriate Assessment & Plan Assessment/Plan (1) Non-ST elevation [place] (NSTEMI): PLAN: She presented with a non-ST elevation myocardial infarction and underwent a cardiac catheterization which demonstrated high-grade right coronary artery stenosis. She underwent PCI of the above. This morning she is doing quite well. Plan is to continue her on guideline directed medical therapy with aspirin, ticagrelor, beta-joanne, high intensity statin. She can be discharged today for outpatient follow-up. (2) Hypertensive emergency: PLAN: Her blood pressure was markedly elevated yesterday but it appears to be doing much better at this time. I will recommend that we continue her on the current therapy. She will be on an KEREN inhibitor and a beta-joanne for now calcium channel joanne can be added as needed. Thank you for allowing me to participate in the care of your patient. Please don't hesitate to call if any issues arise.
[2022-06-07 07:33] VITALS: O2SAT 95
[2022-06-07] MEDS: Enoxaparin 40 MG/0.4 ML Syringe SC (08:49)
[2022-06-07 08:50] VITALS: BP 138/85; PULSE 76
[2022-06-07] MEDS: Lisinopril 20 MG Tablet PO (08:50)
[2022-06-07] MEDS: Metoprolol(XL)Succ 50 MG Tablet PO (08:50)
[2022-06-07] MEDS: Multivitamins,Therapeutic Tablet 1 TABLET PO (08:51)
[2022-06-07] MEDS: TICAGRELOR 90 MG TABLET PO (08:51)
[2022-06-07] MEDS: Aspirin E.C. 81 MG Tablet PO (08:51)
[2022-06-07 09:33] VITALS: BP 138/85; PULSE 76; RESP 20; TEMP 36.2; O2SAT 95
--- NOTE | 2022-06-07 10:00 | EKG12_ITS ---
Test Reason : CP Blood Pressure : / mmHG Vent. Rate : 067 BPM Atrial Rate : 067 BPM P-R Int : 138 ms QRS Dur : 088 ms QT Int : 402 ms P-R-T Axes : 053 050 035 degrees QTc Int : 424 ms Normal sinus rhythm Normal ECG Confirmed by AJ MARQUEZ, JOSHUA ([id number]), fan mail editor VIDA TIMMONS ([id number]) on 06/07/2022 8:36:05 AM Referred By: Joshua Blanca Confirmed By:JOSHUA BLANCA MD
--- NOTE | 2022-06-07 11:46 | DCINST_ITS ---
Discharge Instructions Diet Discharge Diet: Low fat / Low cholesterol Activity Discharge Activity: Return to Normal Activity Weight Bearing Status: Weight bearing as tolerated Dressing / Incision Call your doctor if you observe: Fever of 101 or Higher, Shortness of breath, Chest pain and Increased palpitations (irregular heartbeat) Follow Up Care Test Results: Test results from this visit will be discussed in further detail at your follow- up appointment, if applicable. Discharge Plan Admission Admit Date/Time: 06/06/22 12:01 Primary Reason for Your Visit: nonstemi Attending Provider: Edelmira Castro Primary Care Provider: Greg Morrell Instructions Patient Instructions: Heart Attack Dc Discharge Orders/Prescriptions Prescriptions: New aspirin 81 mg Tablet,Delayed Release (Dr/Ec) 81 mg PO BREAKFAST Qty: 30 2RF atorvastatin 40 mg Tablet 40 mg PO QHS Qty: 30 2RF metoprolol succinate 50 mg Tablet Extended Release 24 Hr 50 mg PO DAILY Qty: 30 2RF lisinopril 20 mg Tablet 20 mg PO DAILY Qty: 30 2RF Brilinta 90 mg Tablet 90 mg PO BID Qty: 60 2RF Continued montelukast 10 mg tablet 10 mg PO DAILY fluticasone propion-salmeterol [Advair Diskus] 250-50 mcg/dose blister with device 1 inh INHALATION BID norethindrone ac-eth estradiol 1-20 mg-mcg tablet 1 tab PO DAILY levocetirizine 5 mg tablet 5 mg PO DAILY multivitamin Tablet 1 tab PO DAILY acetaminophen 500 mg Tablet 1,000 mg PO Q6H PRN (Reason: Pain) Referrals / Follow Up: Greg Morrell MD [Primary Care Provider] - Within 2 Weeks Marcela Ricks PA [Med Staff - Adv Practice Prof] - 06/23/22 9:30 am Disposition Disposition (needs filled in before D/C Order can be placed): Home, Self Care
--- NOTE | 2022-06-07 12:00 | CASEMGMT ---
RN PRIYANKA Face to Face with patient for initial transition planning/care coordination assessment. RN CM introduced self and role at [facility]. Patient lying in bed, alert and oriented. Patient willing to participate in assessment and is able to answer all questions appropriately. Care providers, pharmacy, and demographics verified. Patient wishes to discharge home, denies need for home health at this time. Patient states she has no further needs or concerns at this time. CM to follow for discharge planning needs that may arise. PCP: Petros Specialists: TORSTEN Delgado Preferred Pharmacy: [facility] Insurance: MMO Prescription Benefit: yes, Brilinta savings card provided to patient Living Will/HPOA: none LNOK: Living Arrangements: Patient lives with in a 2 story home. Patient is independent and able to ambulate stairs. Transportation: self, DME/HHC: Patient has nebulizer at home. No previous HHC Disposition Plan: Patient to discharge home with family support and follow-up plans in place. Faye FINE, RN, CM
--- NOTE | 2022-06-07 14:06 | PHA.DC.MR ---
Pharmacy Service has performed discharge medication reconciliation for this patient. The patient's discharge medication list was reviewed for discrepancies and discrepancies were resolved. Patient discharged before I was able to grief counsellor. Home Medications fluticasone 250 mcg-salmeterol 50 mcg/dose blistr powdr for inhalation (Advair Diskus) 1 inh inhalation BID 01/13/22 levocetirizine 5 mg tablet 5 mg PO DAILY ALLERGIES 01/13/22 montelukast 10 mg tablet 10 mg PO DAILY 01/13/22 norethindrone acetate 1 mg-ethinyl estradiol 20 mcg tablet 1 tab PO DAILY 01/13/22 acetaminophen 500 mg tablet 1,000 mg PO Q6H PRN Pain 06/06/22 multivitamin 1 tab PO DAILY SUPPLEMENT 06/06/22 aspirin 81 mg tablet,delayed release 81 mg PO BREAKFAST #30 tabs 06/07/22 atorvastatin 40 mg tablet 40 mg PO QHS #30 tabs 06/07/22 lisinopril 20 mg tablet 20 mg PO DAILY #30 tabs 06/07/22 metoprolol succinate 50 mg tablet,extended release 24 hr 50 mg PO DAILY #30 tabs 06/07/22 ticagrelor 90 mg tablet (Brilinta) 90 mg PO BID #60 tabs 06/07/22
--- NOTE | 2022-06-07 14:50 | PCM.DC.SUM ---
Providers Date of Admission: 06/06/22 Date of Discharge: 06/07/22 Primary Care Physician: Dr. Greg Morrell MD Reason For Visit: NONSTEMI Diagnosis Discharge Diagnosis (1) Non-ST elevation [place] (NSTEMI): Status: Acute Code(s): I21.4 - Non-ST elevation (NSTEMI) myocardial infarction (2) Hypertensive emergency: Status: Acute Code(s): I16.1 - Hypertensive emergency Plan #Nonstemi initial troponin was 350. EKG showed no acute ST changes was given a dose of aspirin in the ED and taken emergently to laboratory immunologist laboratory immunologist findings: showed 99% stenosis of hte RCA, and had drug eluting stent placed. order 2D echo aspirin, high intensity statin, and brilinta #Hypertensive emergency BP was 190/127 at time of admission. Went down to 160s after being given IV labetalol will initiate oral BP meds; IV hydralazine prn started on lisinopril 20mg daily IV hydralazine prn #Asthma not in exacerbation on advair and montelucast DVT prophylaxis: lovenox Code status: full code' Patient counseled extensively about different types of CODE STATUS including full code, DNR CCA and DNR CCA. Patient elects to be full code. Total [id number] time 16 minutes. Medications at Discharge Home Medications fluticasone 250 mcg-salmeterol 50 mcg/dose blistr powdr for inhalation (Advair Diskus) 1 inh inhalation BID 01/13/22 levocetirizine 5 mg tablet 5 mg PO DAILY ALLERGIES 01/13/22 montelukast 10 mg tablet 10 mg PO DAILY 01/13/22 norethindrone acetate 1 mg-ethinyl estradiol 20 mcg tablet 1 tab PO DAILY 01/13/22 acetaminophen 500 mg tablet 1,000 mg PO Q6H PRN Pain 06/06/22 multivitamin 1 tab PO DAILY SUPPLEMENT 06/06/22 aspirin 81 mg tablet,delayed release 81 mg PO BREAKFAST #30 tabs 06/07/22 atorvastatin 40 mg tablet 40 mg PO QHS #30 tabs 06/07/22 lisinopril 20 mg tablet 20 mg PO DAILY #30 tabs 06/07/22 metoprolol succinate 50 mg tablet,extended release 24 hr 50 mg PO DAILY #30 tabs 06/07/22 ticagrelor 90 mg tablet (Brilinta) 90 mg PO BID #60 tabs 06/07/22 Hospital Course Operations None Procedures 2-D Echocardiogram and Cardiac catheterization Summary of Care Provided Minutes Spent on Discharge: 47 Hospital Course: ALINA GUILLERMO, is a 52 F with a PMh as outlined who presents via the ED on 06/06/2022 with a comlplaint of elevated blood pressure and generally not feeling well for several days prior to admisison. SHe also complaind of some pain in her back, in between her shoulder blades. She however thought her symptoms were likely due to some strenous activities of daily living. 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 She denies any type of mass, dizziness, palpitations, chest pain, nausea or vomiting or medical symptoms.? Review of symptoms otherwise negative. Vitals in the ED were blood pressure of 179/127, temperature of 96.7 and pulse rate of 64.? Respiratory rate was 16 and she was saturating 98% on room air.? CBC showed WBC of 12.8 and hemoglobin of 14.6 with platelets of 382.? Chemistry was unremarkable and D-dimer was low.? Initial troponin was 350.? EKG showed no acute ST changes and chest x-ray showed hyperinflation but no acute cardiopulmonary activity.? Cardiology was consulted.? Patient decided to take emergently to the Property Coordinator.? She was given a dose of labetalol in the ED and her blood pressure came down to the 160s.? She was also given aspirin and was admitted to be managed for non-STEMI and hypertensive emergency. She was taken emergently to the laboratory immunologist where she was found to have a high grade right coronary artery stenosis; she had PCI with drug eluting stent to the right coronary artery. She was placed on aspirin, brilinta, high intensity statin and carvedilol. Her blood pressure subsequently also improved. She was placed on metoprolol and lisinopril. Her 2D echo showed EF of 65% with stage I diastolic dysfunction and normal left ventricular systolic function. She remained stable and was discharged on 06/07/2022. She is follow-up with her primary care doctor and cardiology within 2 to 3 weeks. Patient seen and examined prior to discharge. She had no complaints and felt well. Review systems otherwise negative. Labs and vitals reviewed. Home medication reviewed and reconciled. Physical Exam Const alert, oriented x3 and no apparent distress General Appearance: cooperative and comfortable Exam Limitations: no limitations HEENT normocephalic, head/scalp atraumatic, hearing grossly normal bilaterally and moist oral mucous membranes Eyes PERRL, EOMs intact bilaterally and conjunctivae normal Neck no lymphadenopathy and supple Resp normal respiratory effort, no retractions, no use of accessory muscles and clear to auscultation bilaterally Cardio regular rate, regular rhythm, S1 normal heart sound, S2 normal heart sound and no murmurs GI normal to inspection, nondistended, normoactive bowel sounds, soft to palpation, non-tender and non-distended Extremity normal to inspection, full ROM and no clubbing, cyanosis or edema Neuro oriented x3, CN's II-XII intact bilaterally, moves all extremities and no focal motor deficits Sensorium / Orientation: awake and alert Motor Exam: strength 5/5 throughout Psych affect normal Weight / BMI Weight Weight: 249 lb 1.6 oz Body Mass Index (BMI) 35.7 ABG / Lab / Microbiology Data Result Diagrams: 06/07/22 06:20 06/07/22 06:20 Laboratory: Laboratory Results - last 24 hr 06/06/22 08:58: Hemoglobin A1c 5.7 H 06/07/22 06:20: WBC 14.7 H, RBC 5.12, Hgb 14.2, Hct 44.0, MCV 85.9, MCH 27.7, MCHC 32.3, RDW Std Deviation 42.4, RDW Coeff of Sarina 13.6, Plt Count 398, MPV 9.3, Immature Gran % (Auto) 0.500, Neut % (Auto) 70.1 H, Lymph % (Auto) 19.7, [place] % (Auto) 8.2, Eos % (Auto) 0.9, Baso % (Auto) 0.6, Absolute Neuts (auto) 10.3 H, Absolute Lymphs (auto) 2.89, Nucleated RBC % 0 06/07/22 06:20: Sodium 138, Potassium 3.7, Chloride 105, Carbon Dioxide 26.0, Anion Gap 7, BUN 12, Creatinine 0.82, Estim Creat Clear Calc 87.77, Est GFR (MDRD) Af Amer 94, Est GFR (MDRD) Non-Af 78, BUN/Creatinine Ratio 14.5, Glucose 109 H, Calcium 8.9, Total Bilirubin 0.30, AST 25, ALT 28, Alkaline Phosphatase 45, Total Protein 7.3, Albumin 3.1 L, Globulin 4.2, Albumin/Globulin Ratio 0.7 L, Triglycerides 112, Cholesterol 189, LDL Cholesterol 106, VLDL Cholesterol 22, HDL Cholesterol 61 Radiography Diagnostic Testing: Radiology Impression Echocardiogram 06/06/22 17:46 Interpretation Summary Normal LV size. Left ventricular systolic function is normal. The estimated ejection fraction is 65 %. Stage 1 diastolic dysfunction. Structurally normal valves. Ordering Physician: Edelmira Castro Referring Physician: Joshua Blanca Performed By: Margoth Kong RCS D/C Instructions Discharge Diet: Low fat / Low cholesterol Discharge Activity: Return to Normal Activity Weight Bearing Status: Weight bearing as tolerated Call your doctor if you observe: Fever of 101 or Higher, Shortness of breath, Chest pain and Increased palpitations (irregular heartbeat) Meaningful Use Info Meaningful Use Diagnoses (Choose all that apply): None applicable and AMI AMI/Post PCI/Angioplasty Aspirin given w/in 24hrs of arrival?: Yes ASA at discharge?: Yes Antiplatelet Therapy at Discharge:: Yes Statins at discharge?: Yes Tone/ARB at discharge?: Yes Beta Daniela at discharge?: Yes Done w/ Acute AK measure.: Yes Documented LVEF (%): 65 Discharge Plan Admission Admit Date/Time: 06/06/22 12:01 Primary Reason for Your Visit: nonstemi Attending Provider: Edelmira Castro Primary Care Provider: Greg Morrell Discharge Orders/Prescriptions Prescriptions: New aspirin 81 mg Tablet,Delayed Release (Dr/Ec) 81 mg PO BREAKFAST Qty: 30 2RF atorvastatin 40 mg Tablet 40 mg PO QHS Qty: 30 2RF metoprolol succinate 50 mg Tablet Extended Release 24 Hr 50 mg PO DAILY Qty: 30 2RF lisinopril 20 mg Tablet 20 mg PO DAILY Qty: 30 2RF Brilinta 90 mg Tablet 90 mg PO BID Qty: 60 2RF Continued montelukast 10 mg tablet 10 mg PO DAILY fluticasone propion-salmeterol [Advair Diskus] 250-50 mcg/dose blister with device 1 inh INHALATION BID norethindrone ac-eth estradiol 1-20 mg-mcg tablet 1 tab PO DAILY levocetirizine 5 mg tablet 5 mg PO DAILY multivitamin Tablet 1 tab PO DAILY acetaminophen 500 mg Tablet 1,000 mg PO Q6H PRN (Reason: Pain) Referrals / Follow Up: Greg Morrell MD [Primary Care Provider] - Within 2 Weeks Marcela Ricks PA [Med Staff - Adv Practice Prof] - 06/23/22 9:30 am Disposition Disposition (needs filled in before D/C Order can be placed): Home, Self Care Charges/Coding Visit Charges Inpatient E&M: 40617 Disch Hosp >30min
== END 2022-06-07 13:56 | disposition home or self-care (01) | DRG 247 ==
LOC: ED 17:38 → PCU 17:39
PROVIDERS: Specialist; Admitting Provider Student in an Organized Health Care Education/Training Program; Emergency Provider Emergency Medicine; PCP Family Medicine; Referring Provider Internal Medicine Cardiovascular Disease; Visit Provider Student in an Organized Health Care Education/Training Program
DX: I21.4 Non-ST elevation (NSTEMI) myocardial infarction (principal); I16.1 Hypertensive emergency; I10 Essential (primary) hypertension; I25.110 Atherosclerotic heart disease of native coronary artery with unstable angina pectoris; J45.909 Unspecified asthma, uncomplicated; Z79.51 Long term (current) use of inhaled steroids; Z79.899 Other long term (current) drug therapy
CPT/HCPCS: 36415; 71045; 80048; 80053; 80061; 83036; 84484; 84703; 85025; 85379; 92928; 93005; 93306; 93458; 94640; 99152; 99153; 99284; J7030; J7040; Q9967; A4216; C1725; C1769; C1874; C1887; C1894; C9600; J1327